=== PATIENT | male | born 1990 | race Caucasian/White ===

== ENCOUNTER 2017-08-01 11:20 | Emergency (ER) | payer OTHER, SELFPAY ==
[2017-08-01 11:21] VITALS: BP 133/69; PULSE 82; RESP 16; TEMP 36.8; O2SAT 98; BMI 25.0
[2017-08-01 11:42] VITALS: O2SAT 98
--- NOTE | 2017-08-01 11:42 | CT_ITS ---
STUDY: CTA CHEST REASON FOR EXAM: Male, 27 years old. Increasing shortness of breath. Recent lower extremity surgery. DVT in the left lower extremity. RADIATION DOSAGE (If Supplied By Facility): CTDIvol = ( 13.98 ) mGy, DLP = ( 528.21 ) mGycm TECHNIQUE: The examination was performed with the intravenous administration of 100 ml of Isovue 370 contrast material. Post-processing of the angiographic images was performed, with multiplanar reformation and 3D reconstruction. Individualized dose optimization techniques were used for this CT. COMPARISON: None. FINDINGS: Normal enhancement of the main pulmonary artery and right and left pulmonary arteries. Normal enhancement of the bilateral peripheral pulmonary arteries. There is no demonstrated pulmonary embolism. Normal thoracic aorta and visualized great vessels. There is no demonstrated aortic dissection. Normal heart and pericardium. Normal mediastinum. Normal hilar regions. Normal visualized trachea and bronchi. The lungs are well expanded. Normal pulmonary parenchyma. Normal pleura. Normal chest wall structures. Normal osseous structures. There is evidence of diffuse fatty infiltration of the liver. CT/CTA Chest W/WO Contrast IMPRESSION: Normal CTA chest examination, without a demonstrated pulmonary embolism or arterial dissection. Electronically Signed: Samir Garrido MD at 13:03 EST Tel [phone], Service support ,
--- NOTE | 2017-08-01 11:42 | EKG12_ITS ---
Test Reason : SOB Blood Pressure : / mmHG Vent. Rate : 068 BPM Atrial Rate : 068 BPM P-R Int : 146 ms QRS Dur : 094 ms QT Int : 390 ms P-R-T Axes : 025 081 052 degrees QTc Int : 414 ms Normal sinus rhythm Normal ECG Confirmed by TEVIN LUCERO, MARISEL ([id number]), supervising film or videotape editor KALLI MOORE ([id number]) on 08/04/2017 11:20:35 AM Referred By: ALMA Confirmed By:MARISEL ABARCA MD
[2017-08-01] MEDS: 0.9% Normal Saline 1,000 ML 1000 ML IV (12:07)
[2017-08-01 12:22] LABS: Absolute Lymphocyte Count 2.26 X10^3/ul (0.83-4.51); Absolute Neutrophil Count 3.7 X10^3/uL (2.0-7.7); Basophil# 0.04 X10^3/uL; Basophil% 0.6 % (0-1); Eosinophil# 0.49 X10^3/uL; Hematocrit 46.7 % (40-54); Hemoglobin 16.3 g/dl (13.0-16.5); Lymphocyte # 2.26 X10^3/ul (4.0); Lymphocyte % 32.1 % (19-41); Mean Corp Hgb Conc 34.9 g/gl (32-36); Mean Corpuscular Hgb 29.1 pg (27.0-32.0); Mean Corpuscular Volume 83.2 fL (80-94); Mean Platelet Vol. 10.8 fl (6.2-12.0); Monocyte# 0.55 X10^3/uL; Monocyte% 7.8 % (0-10); Neutrophil # 3.68 X10^3/uL (2.7-7.7); Neutrophil % 52.4 % (47-70); Platelet Count 248 K/mm3 (150-450); RBC Distribution Width CV 12.7 % (11.6-14.6); RBC Distribution Width SD 38.3 fl (35.1-43.9); Red Blood Count 5.61 M/mm3 (4.6-6.2)
[2017-08-01 12:23] LABS: Anion Gap 8 (5-15); BUN 12 mg/dL (7-18); Calcium,Total 9.3 mg/dL (8.5-10.1); Chloride 106 mmol/L (98-107); Creatinine, Serum 0.86 mg/dL (0.70-1.30); EST Glomerular Filtration Rate 115 mL/min (>60); Est Glom Filt Rate - Afr Amer 139 mL/min (>60); Estimated Creatinine Clearance 144.12 ml/min; Glucose 82 mg/dL (70-110); Potassium 3.7 mmol/L (3.5-5.1); Sodium Level 140 mmol/L (136-145)
[2017-08-01 12:25] LABS: POSITIVE COUNT NO; POSITIVE DIFFERENTIAL NO; POSITIVE MORPHOLOGY NO
[2017-08-01 13:16] VITALS: BP 116/59; PULSE 69; RESP 18; O2SAT 100
--- NOTE | 2017-08-01 13:23 | ED.DCSUM_ITS ---
- ER Visit Summary Date of Service: 08/01/17 Chief Complaint: Shortness of breath History of Present Illness: The patient is a [address] Watters and Dr. Payne. He reports he has shortness of breath began 4 days ago. It is severe at worst and currently. He denies any fever, chills, or cough. He has chest pain is 2 out of 10 severity. Of note patient had a left Achilles repair July 08. Was seen in the emergency department 4 days ago and had Dopplers that showed a left peroneal vein thrombus. He was started on Eliquis. His last dose was this morning. Mother reports that they have a family history of factor V Leiden and his grandfather had a saddle embolus. Physical Examination: Vitals: Stable. Afebrile. General: Well-nourished and well-developed. Head: Normocephalic atraumatic. Neck: Supple, no lymphadenopathy. No JVD. Nontender. Cardiovascular: Regular rate and rhythm. No murmurs. Respiratory: No respiratory distress. Clear to auscultation bilaterally. Abdominal: Soft, nontender, nondistended, normal bowel sounds. No guarding, rebound, or peritoneal signs. Back: Nontender. Extremities: Minimal tenderness to palpation to the left calf. He has a short leg cast on. Skin: Normal color, no rash. Neurologic: Alert and oriented ?3. Cranial nerves II through XII are intact. Normal strength and sensation. Psych: Normal affect. Test Results: EKG is sinus at 68 with no acute changes. Troponin is negative. Chem-7 is normal. CBC is more for eosinophils of 7. CTA of chest is negative. Emergency Department Course and Treatment: She is resting comfortably without complaint. Treatment Plan: He will be discharged instructions to follow-up Dr. Watters for further evaluation and treatment. Return to the emergency department for any worsening symptoms. Disposition: To home in improved and stable condition. Impression:. Dyspnea, uncertain cause. 2. Left peroneal vein thrombus. 3. Family history of factor V Leiden deficiency. 4. Status post left Achilles repair July 08, 2017. This note was generated with [employer] software. It may contain incorrect words, spelling, and punctuation that were not noted in review of the chart prior to signing ED Disposition - Plan for ED Patient: Chief Complaint: Shortness of Breath Instructions: ED Dyspnea Shortness of Breath Referrals: Paul Jacobo MD [Primary Care Provider] - 1-2 Days if not improving
== END 2017-08-01 13:53 | disposition home or self-care (01) ==
PROVIDERS: Emergency Provider Emergency Medicine; Family Provider Family Medicine; PCP Family Medicine
DX: R06.00 Dyspnea, unspecified (principal); I82.4Z2 Acute embolism and thrombosis of unspecified deep veins of left distal lower extremity; Z98.890 Other specified postprocedural states; Z83.2 Family history of diseases of the blood and blood-forming organs and certain disorders involving the immune mechanism
CPT/HCPCS: 71275; 80048; 84484; 85025; 93005; 96360; 96361; 99284; J7050; Q9967; A4216

== ENCOUNTER → 2017-11-09 12:37 | Outpatient (CLI) | payer OTHER, SELFPAY | PROVIDERS: Family Provider Family Medicine; PCP Family Medicine; Visit Provider Family Medicine | DX: Z83.2 Family history of diseases of the blood and blood-forming organs and certain disorders involving the immune mechanism (principal) | CPT/HCPCS: 36415; 81241 ==

== ENCOUNTER 2018-01-16 10:30 | Outpatient (RCR) | payer OTHER, SELFPAY ==
--- NOTE | 2017-09-28 14:02 | HP.PTEVAL ---
Patient's Visit Information SHRUTHI NEWTON is a 27 year old M referred to Physical Therapy by DR.SMORSE Wally with a diagnosis of strain of left achilles tendon. Date of Evaluation: 09/21/17 Physical Therapist: Arun Denson - Visit Plan Frequency: 2-3x /Week Duration: 4-6 Weeks Plan: Start with ankle strengthening as tolerated. Pt. is full WBing in boot with lift, after 4 weeks progress to boot without lift then another 4 weeks transition out of boot. No impact or DF for 9mo.-1 year. - Subjective Subjective: Pt. is here today for her initial evaluation with diagnosis of strain of left achilles tendon with rupture and susequent repair. DOS on 07/08/17. Pt. was recently allowed to wean from crutches, but to maintain in CAM boot. Pt. reports no pain currently, but does have increased soreness in his heel with prolonged walking. Pt. has not been doing any exercises currently. Pt. reports injury his achilles while playing basketball. 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 Pt. reports noticing overall reduction in calf muscle mass side to side. Pt. is hopeful to get started with PT to build up his strength in order to get back to all recreational sports: basketball, running, crossfit without limitations. - Pain L achilles Pain Intensity (Out of 10): 0 Pain Intensity Range: 0, 3 - Objective POSTURE: Pt. has normal posture. Pt. is to wear CAM boot with all standing and walking. PALAPTION: Pt. has normal well healing incision along achilles tendon. No signs of infection or issues. Pt. has negative sandeep's sign. Pt. has marked muscle calf atrophy of L calf. Pt. has mild tenderness along distal insertion of achilles tendon. NEUROLOGICAL: Pt. has normal sensation to light and sharp touch of bilateral LEs. Pt. has 2+ achilles and patellar DTR on R side, 2+ patellar DTR on L side. ROM: R ankle- PF 55deg, DF 16deg, INV 20deg, EVR 20deg. L ankle- DF 0deg, PF 51deg, INV 16deg, EVR 12deg. Pt. has normal knee ROM bilaterally. MMT: R ankle- 5/5 throughout; knee- ext 5/5, flexion 5/5; hip- flexion 5/5, abd 5-/5, ext 5/5. L ankle- DF no testing, PF 3/5 no over pressure applied, INV 4/5, INV 4/5; knee- ext 4+/5, flexion 4+/5; hip- flexion 4+/5, abd 4/5, ext 4+/5. GAIT: Pt. ambulates with CAM boot. Pt. has normal pattern, no antalgic motions. Pt. is able to negotiate steps with LOB, but loads RLE only with descending, brace limiting proper ankle mobility. - Goals Goal 1:: Pt. to be I with HEP. Goal Time Frame: 4-6 Weeks Goal 2:: Pt. to have full L ankle ROM without increase in symptoms. Goal Time Frame: 4-6 Weeks Goal 3:: Pt. to have increased LLE strength to 5/5 throughout, reducing stress applied to achilles tendon with all functional mobility. Goal Time Frame: 4-6 Weeks Goal 4:: Pt. to ambulate with normal gait pattern without increase in symptoms. Goal Time Frame: 4-6 Weeks Goal 5:: Pt. to negotiate steps without HR with reciprocal pattern. Goal Time Frame: 4-6 Weeks - Rehabilitation Potential Physical Therapy Diagnosis: Pt. had strain of left achilles tendon with subsequent achilles tendon repair. He presents with ankle hypombility, weakness, difficulty with gait and decreased abiity to complete recreational sports. Pt. would benefit from PT to increase ankle ROM, progress strength and progress gait as tolerated. Rehabilitation Potential: Excellent - Anticipated Interventions Patient/Client Instruction: Educate patient on: Condition, Plan of Care, Risk Factors, Benefits of Fitness Program For the Purpose of:: To improve decision making, To facilitate caregiver knowledge, To improve self management, To prevent re-injury, To improve ability to perform tasks related to life management, To improve tolerance to ADL's Therapeutic Exercise to Include: Strength training, Power training, Balance training, Agility training, Body mechanics, Postural training, Flexibilty training, Neuromotor development, Passive ROM, Active ROM For the Purpose of:: To decrease pain, To increase ROM, To improve nutrient delivery to tissue, To increase oxygenation perfusion, To improve muscle performance and motor function, To improve ability to perform ADL's, To increase tolerance to activity/condition/position, To improve performance and independence with ADL's, To decrease level of supervision to perform tasks, To decrease soft tissue restriction, To increase flexibility/ROM, To improve endurance, To improve balance Manual Therapy Techniques to Include: Massage, Mobilization, Functional dry needling, Soft tissue mobilization For the Purpose of:: To decrease pain, To decrease swelling/inflammation, To increase ROM, To improve nutrient delivery to tissue IF ES: Yes Cryotherapy (ice pack, ice massage): Yes Thermo therapy (hot pack): Yes For the Purpose of:: To decrease pain, To decrease swelling/inflammation, To increase ROM Thank you for the opportunity to evaluate your patient. For Medicare and Medicare HMO plans, please review the plan of care and approve it. It will need to be FAXED BACK to us at [phone] for Medicare purposes. Please let me know if there are questions or concerns regarding this plan of care. Physician Signature: Date:
--- NOTE | 2017-12-30 09:21 | HP.PTREVAL_ITS ---
Rola Payne,, It has been my pleasure to treat SHRUTHI NEWTON over the last 34 visits for strain of left achilles tendon. Please see the progress note below for an update on the physical therapy plan of care! Subjective: Pt. reports no pain or problems pre treatment. He was able to play softball with pitching and running without issues, pt. reports no spriting. Pt. is back to most activities without limitations. Pt. is pleased with progress. Objective/Function: Pt. has normal ROM without issues. MMT- 5/5 throughout no pain noted. Pt. is ambulating and negotiation stairs without issues. Running- pt. has slight early heel off with gait, but minimal. Pt. is jumping wihtout isues. I talked to patient about staying away from aggressive movements still, but progress movements as tolerated. Pt. to follow up with PT in 2 weeks. Plan Plan: Pt. to follow up with PT in 2 weeks. Goals Goal 1:: Pt. to be I with HEP. Goal Time Frame: 4-6 Weeks Goal Progress: Goal Met Goal 2:: Pt. to have full L ankle ROM without increase in symptoms. Goal Time Frame: 4-6 Weeks Goal Progress: Goal Met Goal 3:: Pt. to have increased LLE strength to 5/5 throughout, reducing stress applied to achilles tendon with all functional mobility. Goal Time Frame: 4-6 Weeks Goal Progress: Goal Met Goal 4:: Pt. to ambulate with normal gait pattern without increase in symptoms. Goal Time Frame: 4-6 Weeks Goal Progress: Goal Met Goal 5:: Pt. to negotiate steps without HR with reciprocal pattern. Goal Time Frame: 4-6 Weeks Goal Progress: Goal Met Anticipated Interventions Patient/Client Instruction: Educate patient on: Condition, Plan of Care, Risk Factors, Benefits of Fitness Program For the Purpose of:: To improve decision making, To facilitate caregiver knowledge, To improve self management, To prevent re-injury, To improve ability to perform tasks related to life management, To improve tolerance to ADL's Therapeutic Exercise to Include: Strength training, Power training, Balance training, Agility training, Body mechanics, Postural training, Flexibilty training, Neuromotor development, Passive ROM, Active ROM For the Purpose of:: To decrease pain, To increase ROM, To improve nutrient delivery to tissue, To increase oxygenation perfusion, To improve muscle performance and motor function, To improve ability to perform ADL's, To increase tolerance to activity/condition/position, To improve performance and independence with ADL's, To decrease level of supervision to perform tasks, To decrease soft tissue restriction, To increase flexibility/ROM, To improve endurance, To improve balance Manual Therapy Techniques to Include: Massage, Mobilization, Functional dry needling, Soft tissue mobilization For the Purpose of:: To decrease pain, To decrease swelling/inflammation, To increase ROM, To improve nutrient delivery to tissue IF ES: Yes Cryotherapy (ice pack, ice massage): Yes Thermo therapy (hot pack): Yes For the Purpose of:: To decrease pain, To decrease swelling/inflammation, To increase ROM Please do not hesitate to contact me at [phone] by phone or Fax: if you have questions or concerns regarding this new plan of care! Sincerely, Arun Denson
--- NOTE | 2018-01-16 11:33 | HP.PTDCSUM ---
HP - PT D/C Summary It has been my pleasure to treat SHRUTHI NEWTON under orders from Rola Payne,, for the diagnosis of strain of left achilles tendon for a total of 35 visit(s). Discharge Date: 01/16/18 Please see the following information for a summary of their discharge status. - Subjective Subjective: Pt. reports I am doing really well. I don't really have any issues. Pt. pleased with progrss. Pt. does have slight stiffness and soreness at anterior talotibial joint, most notably with jumping. Pt. reports being 97% better overall. Pt. reports being able to lightly jog and play softball without issues. - Pain L achilles Pain Intensity (Out of 10): 0 - Overall Improvement % Improvement: 97 - Objective Objective/Function: Pt. has full ROM and strength. He has complete full heel raises without issues, but does have difficulty with L SL heel raises. Pt. is jumping without issues, but does have mild anterior pain with SL hopping to landing. Pt. is pleased with progress. Pt. is to continue with exercises and stretching on own at this point intime. - Goals Goal 1:: Pt. to be I with HEP. Goal Progress: Goal Met Goal 2:: Pt. to have full L ankle ROM without increase in symptoms. Goal Progress: Goal Met Goal 3:: Pt. to have increased LLE strength to 5/5 throughout, reducing stress applied to achilles tendon with all functional mobility. Goal Progress: Goal Met Goal 4:: Pt. to ambulate with normal gait pattern without increase in symptoms. Goal Progress: Goal Met Goal 5:: Pt. to negotiate steps without HR with reciprocal pattern. Goal Progress: Goal Met - Plan Plan: Pt. to be DC to HEP at this point in time. - D/C Information Discharge Comments: Pt. has progressed after his achilles tendon repair. He is back to light running, sporting activities and has only occassional anterior ankle pain with jumping. Pt. has full strength and ROM at this point in time. Pt. will be DC from PT at this point in time. If there are questions or concerns regarding this patient's physical therapy, please feel free to call me at [phone]. Thank you for the referral of this patient. Sincerely, Arun Denson
== END 2018-01-16 19:00 | disposition home or self-care (01) ==
LOC: PT 10:30
PROVIDERS: Family Provider Family Medicine; PCP Family Medicine; Visit Provider Podiatrist Foot & Ankle Surgery
DX: S86.012D Strain of left Achilles tendon, subsequent encounter (principal)
CPT/HCPCS: 97110; 97161

== ENCOUNTER → 2018-06-23 11:30 | Outpatient (CLI) | payer OTHER, SELFPAY ==
--- NOTE | 2018-06-23 11:33 | RAD_ITS ---
STUDY: X-RAY CHEST REASON FOR EXAM: Male, 28 years old. Shortness of breath with mild anterior chest pain, dropped a bench press bar on chest recently TECHNIQUE: PA and lateral views of the chest. COMPARISON: None. FINDINGS: The lungs are clear and expanded. There is no demonstrated pleural abnormality. Normal size heart. Normal mediastinum and all. Normal visualized pulmonary arteries. Normal visualized aortic arch and descending thoracic aorta. Normal visualized thoracic spine. Normal visualized ribs, clavicles, and shoulders. The sternum is grossly unremarkable without obvious fracture. There is no demonstrated abnormality of the visualized soft tissue structures of the upper abdomen. RAD/Chest PA and Lateral IMPRESSION: Normal x-ray examination of the chest. Electronically Signed: Kennedy Deluna MD at 10:03 EST , Service support ,
== END ==
PROVIDERS: Family Provider Family Medicine; PCP Family Medicine; Referring Provider Family Medicine; Visit Provider Family Medicine
DX: R06.02 Shortness of breath (principal)
CPT/HCPCS: 71046

== ENCOUNTER → 2021-11-09 | Outpatient (CLI) | payer OTHER, SELFPAY ==
[2021-11-09 16:32] LABS: Anion Gap 9 (5-15); BUN 12 mg/dL (7-18); BUN/Creat Ratio 12.7 RATIO (10-20); Calcium,Total 9.5 mg/dL (8.5-10.1); Chloride 106 mmol/L (98-107); Cholesterol 149 mg/dL (200); Creatinine, Serum 0.95 mg/dL (0.70-1.30); EST Glomerular Filtration Rate 100 mL/min (>60); Est Glom Filt Rate - Afr Amer 121 mL/min (>60); Glucose 84 mg/dL (74-106); High Density Lipoprotein 48 mg/dL; Potassium 3.9 mmol/L (3.5-5.1); Sodium Level 139 mmol/L (136-145); Triglycerides 72 mg/dL; Very Low Density Lipoprotein 14 mg/dL (5-40)
== END | disposition home or self-care (01) ==
LOC: MFPLAB 11:09
PROVIDERS: PCP Family Medicine; Visit Provider Family Medicine
DX: Z13.220 Encounter for screening for lipoid disorders (principal)
CPT/HCPCS: 36415; 80048; 80061

== ENCOUNTER 2021-11-24 08:17 | Emergency (ER) | payer OTHER, SELFPAY ==
[2021-11-24 08:18] VITALS: BP 144/94; PULSE 60; RESP 14; TEMP 36.6; O2SAT 99; BMI 26.4
--- NOTE | 2021-11-24 08:46 | CT_ITS ---
STUDY: CT ABDOMEN AND PELVIS WITHOUT CONTRAST REASON FOR EXAM: Male, 31 years old. Kidney Stone RADIATION DOSAGE (If Supplied By Facility): CTDIvol = ( 7.3 ) mGy, DLP = ( 386.74 ) mGycm TECHNIQUE: Transaxial images were obtained from the dome of the diaphragm to the symphysis pubis without oral contrast, and without intravenous contrast. Sagittal and coronal images were reconstructed. Individualized dose optimization techniques were used for this CT. COMPARISON: None. FINDINGS: The visualized lung bases are unremarkable. The visualized portions of the heart are within normal limits. There is decreased attenuation of the liver consistent with steatosis. Normal gallbladder and extrahepatic biliary system. Normal spleen. Normal pancreas. Normal bilateral adrenal glands. Bilateral nonobstructing renal stones. 5 mm obstructing stone at the left ureteropelvic junction with mild hydronephrosis. There is a second smaller (3 mm) nonobstructing stone in the dependent portion the left renal pelvis. Normal visualized stomach. Normal small intestine. Normal colon. The appendix is visualized and appears normal. Normal abdominal aorta. Normal inferior vena cava. Normal retroperitoneum. Normal urinary bladder. Normal abdominal wall. Normal osseous structures. CT/Abdomen/Pelvis without Cont IMPRESSION: 5 mm obstructing stone at the left ureteropelvic junction with mild hydronephrosis. Electronically Signed: Derrick Horowitz MD at 9:51 EDT ,
[2021-11-24] MEDS: Ondansetron 4 MG/2 ML Vial IV (08:51)
[2021-11-24] MEDS: Ketorolac 30 MG/ML Syringe IV (08:51)
[2021-11-24] MEDS: 0.9% Normal Saline 1,000 ML 250 ML IV (08:51)
--- NOTE | 2021-11-24 08:51 | EX.ED.GUMALE ---
HPI History of Present Illness Chief Complaint: Flank Pain Narrative Narrative: Patient with past medical history of kidney stones presents with left flank pain that began this weekend. He states he had sudden onset of left flank pain radiating to his testicle this morning. He had leftover medications of Flomax and oxycodone that he took which helped mild to moderately. He states this morning he began urinating small blood clots. He was nauseated. He cannot get comfortable. This feels like previous kidney stones for which she saw Dr. Bond in the past, but does not really see him because he has been able to pass small stones regularly. He last passed a stone a few weeks ago. He states he has not been to the emergency department in quite some time if not a few years for kidney stones, but feels this stone is stuck. PFSH PFSH Home Medications apixaban [Eliquis] 5 mg PO BID #74 tab 07/28/17 [Rx Last Taken Unknown] ketorolac 10 mg PO Q8H 5 Days #15 tab 11/24/21 [Rx Last Taken Unknown] oxycodone-acetaminophen [Percocet] 1 tab PO Q6H PRN 3 Days #12 tab 11/24/21 [Rx Last Taken Unknown] tamsulosin [Flomax] 0.4 mg PO QHS #10 cap 11/24/21 [Rx Last Taken Unknown] Allergy/AdvReac Type Severity Reaction Status Date / Time No Known Allergies Allergy Verified 11/24/21 08:18 Social History Smoking Status: Never smoker ROS ROS ED ROS Narrative Constitutional: No fever, no chills. HEENT: No sore throat. No neck pain. No loss of vision. No rhinorrhea. Cardiovascular: No chest pain. No palpitations. No pedal edema. Respiratory: No cough, no shortness of breath. Abdominal: Positive left flank pain/abdominal pain. Mild nausea. No vomiting. Genitourinary: No dysuria. Positive hematuria, small clots. Left flank pain radiating to left testicle. Musculoskeletal: No myalgias. No arthralgias. Neurologic: No headaches. No dizziness. No lightheadedness. Skin: No rash. No change in color. Psychiatric: No depression. No anxiety. EXAM Physical Exam Narrative Exam Narrative: Afebrile. Vital signs noted. HEENT: Normocephalic. Atraumatic. PERRL, EOMI. Neck soft and supple. No point tenderness or step off. Cardiovascular: Regular rate and rhythm. No murmurs, rubs, or gallops appreciated. Respiratory: No tachypnea. Lungs clear to auscultation bilaterally. Gastrointestinal: Abdomen soft, nontender, with normoactive bowel sounds. No rebound or guarding. Genitourinary: Chaperoned examination reveals no testicular tenderness or swelling. No inguinal lymphadenopathy. Neurological: Awake. Alert. Nonfocal, nonlateralizing. Skin: No rash. Normal color. No pallor. Musculoskeletal: No pedal edema. Full range of motion extremities. Const Vital Signs: 11/24/21 08:18 Temperature 98 F Temperature Source Temporal Pulse Rate 60 Respiratory Rate 14 Blood Pressure 144/94 H Blood Pressure Mean 110 Pulse Ox 99 Oxygen Delivery Method Room Air MDM MDM MDM Narrative Medical decision making narrative: Ureteral stone work-up was pursued. He was administered normal saline intravenously, Toradol, and ondansetron. I will obtain CBC, BMP, and urinalysis along with CT imaging. CBC shows normal white count of 8.9, hemoglobin normal at 14.3. Electrolyte panel is grossly unremarkable. Normal creatinine of 0.94 with a BUN of 15. Urinalysis shows no evidence of infection, negative nitrates, WBC 0, with 10-[address] of the abdomen and pelvis does show a 5 mm ureteral pelvic junction stone causing mild hydronephrosis. There is a 3 mm dependent stone in the inferior pole of the left kidney. At this point in time, his pain is better controlled. He was written prescriptions for ketorolac, oxycodone-acetaminophen no. 12, entomologist sent. He will follow-up with his urologist Dr. Bond. Referral was made from the emergency department. He was also given a note to be off work for the next 2 days. I feel he can be discharged safely home with follow-up. Return instructions to the emergency department were reviewed. Disposition is discharged home in stable condition. Lab Data Attestation: I reviewed the patient's lab results. Labs: Laboratory Results - last 24 hr 11/24/21 11/24/21 11/24/21 08:52 08:52 09:00 WBC 8.9 RBC 5.14 Hgb 14.3 Hct 43.4 MCV 84.4 MCH 27.8 MCHC 32.9 RDW Std Deviation 37.4 RDW Coeff of Elias 12.3 Plt Count 290 MPV 10.0 Immature Gran % (Auto) 0.200 Neut % (Auto) 64.2 Lymph % (Auto) 26.9 [place] % (Auto) 7.0 Eos % (Auto) 1.1 Baso % (Auto) 0.6 Absolute Neuts (auto) 5.7 Absolute Lymphs (auto) 2.40 Nucleated RBC % 0 Sodium 139 Potassium 4.1 Chloride 107 Carbon Dioxide 27.0 Anion Gap 5 BUN 15 Creatinine 0.94 Estim Creat Clear Calc 131.04 Est GFR (MDRD) Af Amer 121 Est GFR (MDRD) Non-Af 100 BUN/Creatinine Ratio 15.9 Glucose 91 Calcium 9.0 Urine Color Yellow Urine Clarity Sl. Cloudy Urine pH 7.0 Ur Specific [place] 1.010 Urine Protein 15 H Urine Glucose (UA) Normal Urine Ketones Negative Urine Occult Blood 250 H Urine Nitrite Negative Urine Bilirubin Negative Urine Urobilinogen Normal Ur Leukocyte Esterase Negative Urine RBC 10-25 SEEN Urine WBC 0 SEEN Ur Squamous Epith Cells 0 SEEN Urine Bacteria 0 SEEN Urine Mucus 0 SEEN Radiography Diagnostic Testing: Clinical Impression(s) from Imaging Studies Abdomen/Pelvis CT 11/24/21 08:46 IMPRESSION: 5 mm obstructing stone at the left ureteropelvic junction with mild hydronephrosis. Electronically Signed: Derrick Horowitz MD at 9:51 EDT , Discharge Plan Triage Chief Complaint: Flank Pain ED Provider: Danyel Pisano Dx/Rx/DC Orders Clinical Impression: Kidney stone on left side, Ureteral colic, Hydronephrosis Instructions: ED Kidney Stone w/ Colic Prescriptions: New ketorolac 10 mg tablet 10 mg PO Q8H 5 Days Qty: 15 RF: 0 tamsulosin [Flomax] 0.4 mg capsule 0.4 mg PO QHS Qty: 10 RF: 0 oxycodone-acetaminophen [Percocet] 5-325 mg tablet 1 tab PO Q6H PRN (Reason: pain) 3 Days Qty: 12 RF: 0 No Action apixaban [Eliquis] 5 MG tablet 5 mg PO BID Qty: 74 RF: 0 Stand Alone Forms: ED Work / School Excuse Primary Care Provider: Paul Jacobo Referrals: Paul Jacobo MD [Primary Care Provider] - Henry Bond MD [STAFF PHYSICIAN] - 3-5 Days Disposition Disposition: Home, Self Care
[2021-11-24 09:05] LABS: Bacteria 0 SEEN /hpf (None Seen); Mucous, Urine 0 SEEN /hpf (<or=2+); Squamous Epithelial Cells - UA 0 SEEN /hpf (0-5); White Blood Cells 0 SEEN /hpf (0-5)
[2021-11-24 09:08] LABS: Color, Urine Yellow (Yellow); Glucose, Dipstick Normal (Normal); Ketone-Dipstick Negative (Negative); Leukocyte Esterase-Dipstick Negative /ul (Negative); Nitrite-Dipstick Negative (Negative); Occult Blood-Urine 250 /ul (Negative); Protein-Dipstick 15 mg/dl (Negative); Urine Bilirubin Dipstick Negative (Negative); Urine Clarity Sl. Cloudy (Clear); Urine Urobilinogen Normal (Normal)
[2021-11-24 09:13] LABS: Absolute Neutrophil Count 5.7 X10^3/uL (2.0-7.7); Basophil# 0.05 X10^3/uL; Basophil% 0.6 % (0-1); Eosinophils% 1.1 % (0-5); Hematocrit 43.4 % (40-54); Hemoglobin 14.3 g/dL (13.0-16.5); Lymphocyte % 26.9 % (19-41); Mean Corp Hgb Conc 32.9 g/dL (32-36); Mean Corpuscular Hgb 27.8 pg (27.0-32.0); Mean Corpuscular Volume 84.4 fL (80-94); Monocyte# 0.62 X10^3/uL; NRBC Flagged by Analyzer 0 % (0-5); Neutrophil # 5.72 X10^3/uL (2.7-7.7); Neutrophil % 64.2 % (47-70); Platelet Count 290 K/mm3 (150-450); RBC Distribution Width CV 12.3 % (11.6-14.6); RBC Distribution Width SD 37.4 fl (35.1-43.9); Red Blood Count 5.14 M/mm3 (4.6-6.2); White Blood Count 8.9 K/mm3 (4.4-11.0)
[2021-11-24 09:17] LABS: Red Blood Cells-Urine 10-25 SEEN /hpf (0-5)
[2021-11-24 09:23] LABS: Anion Gap 5 (5-15); BUN 15 mg/dL (7-18); BUN/Creat Ratio 15.9 RATIO (10-20); Chloride 107 mmol/L (98-107); Creatinine, Serum 0.94 mg/dL (0.70-1.30); EST Glomerular Filtration Rate 100 mL/min (>60); Est Glom Filt Rate - Afr Amer 121 mL/min (>60); Estimated Creatinine Clearance 131.04 ml/min; Glucose 91 mg/dL (74-106); Potassium 4.1 mmol/L (3.5-5.1); Sodium Level 139 mmol/L (136-145)
[2021-11-24 10:23] VITALS: BP 130/82; PULSE 70; RESP 16; O2SAT 99
== END 2021-11-24 10:28 | disposition home or self-care (01) ==
PROVIDERS: Emergency Provider Emergency Medicine; PCP Family Medicine; Visit Provider Emergency Medicine
DX: N13.2 Hydronephrosis with renal and ureteral calculous obstruction (principal); R11.0 Nausea; N23 Unspecified renal colic
CPT/HCPCS: 74176; 80048; 81001; 85025; 96361; 96374; 96375; 99283; J7030; A4216; J2405

== ENCOUNTER → 2021-12-15 | Outpatient (CLI) | payer OTHER, SELFPAY ==
--- NOTE | 2021-12-15 15:03 | VDLE_ITS ---
Reason For Study: Left calf pain Procedure LEFT This is a venous duplex using B-mode, color GSV is normal. flow and spectral Doppler. CFV is compressible, spontaneous, phasic, Exam performed in department. competent, and demonstrates normal A preliminary report was called and/or faxed augmentation. to [facility]. FV is compressible, spontaneous, phasic, competent and demonstrates normal augmentation. POP V is compressible, spontaneous, phasic, competent and demonstrates normal augmentation. T/P Trunk is compressible. PTV is compressible. LT PerV is compressible. Nonvascularized structure noted in the left proximal calf muscle. VL/Venous Duplex US, Unilateral Interpretation Summary There is no evidence of left lower extremity deep vein thrombosis. Left great s aphenous vein appears patent and compressible segmentally. Nonvascular structure located in the left proximal calf muscle longer than a ultrasound viewing screened of undetermined etiology. Clinical co rrelation or additional imaging if indicated. Ordering Physician: Paul Jacobo Referring Physician: Candido Jacobo MD Performed By: Savanna Easley RVT
== END | disposition home or self-care (01) ==
PROVIDERS: PCP Family Medicine; Visit Provider Family Medicine
DX: M79.662 Pain in left lower leg (principal)
CPT/HCPCS: 93971

== ENCOUNTER → 2022-01-05 | Outpatient (CLI) | payer OTHER, SELFPAY ==
--- NOTE | 2022-01-05 08:38 | RAD_ITS ---
STUDY: X-RAY - ABDOMEN/PELVIS REASON FOR EXAM: Male, 31 years old. Flank pain TECHNIQUE: Two AP supine views of the abdomen and pelvis. COMPARISON: None. FINDINGS: Normal visualized lung bases. There is an unremarkable bowel gas pattern. There is no demonstrated free abdominal air. The visualized liver, spleen and kidneys are grossly normal in size and morphology. No calcifications overlying either renal shadow, or along the expected course of either ureter, however, one could be obscured by the overlying bowel gas and stool Normal soft tissue structures. Normal visualized osseous structures. RAD/Abdomen Single View IMPRESSION: Normal x-ray examination of the abdomen and pelvis. Electronically Signed: Marcus Romero MD at 11:55 EDT ,
== END | disposition home or self-care (01) ==
LOC: RAD 08:36
PROVIDERS: PCP Family Medicine; Referring Provider Urology; Visit Provider Urology
DX: N20.1 Calculus of ureter (principal)
CPT/HCPCS: 74018

== ENCOUNTER 2025-02-07 16:00 | Outpatient (CLI) | payer OTHER, SELFPAY ==
[2025-02-07 20:14] LABS: Synovial Fld Mononuclear WBC # 4.225 10^3/ul; Synovial Fld Mononuclear WBC % 17.9 %; Synovial Fld Polynuclear WBC % 82.1 %
[2025-02-07 20:21] LABS: AUTO B FLUID DILUENT BKGD CT WBC <0.1 RBC <0.01 (W<.1,R<.01); Color / Synovial Fluid Yellow (Pale Yellow); Source / Synovial Fluid LEFT KNEE; Source- Body Fluid SYNOVIAL
[2025-02-07 20:22] LABS: Appearance /Synovial Fluid Turbid (CLEAR)
[2025-02-07 22:43] LABS: Body Fluid QC Type(s) BF1Q, BF2Q; RBC /Synovial Fluid 495 /mm3 (0)
[2025-02-07 23:20] LABS: Monocyte /Synovial Fluid 16 %
[2025-02-07 23:34] LABS: CRYSTALS, BODY FLUID NO CRYSTALS SEEN
== END 2025-02-07 23:59 | disposition home or self-care (01) ==
LOC: LABSPEC 16:01
PROVIDERS: PCP Family Medicine; Visit Provider Family Medicine
DX: M25.462 Effusion, left knee (principal)
CPT/HCPCS: 87070; 87075; 87205; 89050; 89051; 89060

== ENCOUNTER → 2025-06-24 | Outpatient (CLI) | payer OTHER, SELFPAY ==
[2025-06-24 10:54] LABS: Anion Gap 11 (5-15); BUN 14 mg/dL (4-19); BUN/Creat Ratio 16.2 RATIO (10-20); Calcium,Total 9.8 mg/dL (7.6-11.0); Carbon Dioxide 26.3 mmol/L (21.0-32.0); Chloride 103 mmol/L (98-108); Cholesterol 171 mg/dL (<=200); Glucose 97 mg/dL (70-99); Low Density Lipoprotein Calc. 100 mg/dL; Potassium 4.3 mmol/L (3.3-5.1); Triglycerides 113 mg/dL; Very Low Density Lipoprotein 23 mg/dL (5-40); cholesterol:hdl ratio screen 3.41
== END | disposition home or self-care (01) ==
LOC: MTLAB 08:06
PROVIDERS: PCP Family Medicine; Referring Provider Family Medicine; Visit Provider Family Medicine
DX: Z13.1 Encounter for screening for diabetes mellitus (principal); Z13.220 Encounter for screening for lipoid disorders
CPT/HCPCS: 36415; 80048; 80061

== ENCOUNTER → 2025-06-25 | Outpatient (CLI) | payer OTHER, SELFPAY ==
--- OUTSIDE RECORDS SUMMARY | 2025-06-25 09:01 | XMS RPT_ITS | CCD ---
Author Organization [facility] Inform ion Partnership [facility] Care Team Providers Care Film Editor Supervisor Name Role Phone Donnell LUCERO, Husam Ramirez Primary Care Provider CLEMENTINA ZUNIGA Attending Unava ilable HUSAM JACOBO Primary Care Unavailcarolann Jacobo MD, Dr. Rey Primary Care Provider Dr. Husam Jacobo MD Attending Provider Husam Jacobo Attending Unavailable Husam Jacobo Primary Care Unavailable STEPH GARCES Attending Unavailab HUSAM Armas Primary Care Unavail able Allergies Allergy Classification Reported Allergen(s) Allergy Type Date of Onset Reaction(s) Facility (2 sources) Adhesive Tape-Silicones; Translations: [ADHESIVE TAPE-SILICONES] Drug Intolerance 4 Rash [facility] Medications Current Medications Medication Drug Class(es) Dates Sig (Normalized) Sig (Original) acetaminophen 325 mg / oxyCODONE hydrochloride 5 mg oral tablet (2 sources) Opioid Agonist Start: 11-24-2021 take 1 tablet by mouth every six hours as needed for pain Oxycodone-Acetamin ophen (Percocet) 5-325 mg tablet Active 1 {tbl} PO EVERY 6 HOURS as needed for pain 12 3 0 November 24, 2021 Calculus of left kidney Calculus of kidney apixaban 5 mg oral tablet (3 sources) Factor Xa Inhibitor Start: 07-28-2017 take 2 tablets by mouth twice daily, then take 1 tablet by mouth twice daily Apixaban (Eliquis) 5 MG tablet Active 5 MG PO TWICE A DAY 74 July 28, 2017 4:16pm 10 mg p.o. twice daily 7 days. Then 5 mg p.o. twice daily. cephalexin 500 mg oral capsule (1 source) Cephalosporin Antibacterial Start: 05-07-2024 End: 05-10-2024 take 1 capsule by mouth three times daily cephALEXin (KEFLEX) 500 mg capsule Indications: Encounter for vasectomy counseling , Request for sterilization Take 1 capsule by mouth three times a day for 3 days. Start day of vasectomy 9 capsule 05/07/2024 05/10/2024 Active diazePAM 10 mg oral tablet (1 source) Benzodiazepine Start: 05-07-2024 End: 05-07-2024 take 1 tablet by mouth once, then take 1 tablet by mouth every hour diazePAM (VALIUM) 10 mg tablet Indications: Encounter for vasectomy counseling , Request for sterilization Take 1 tablet by mouth one time only for 1 dose. Take one hour prior to vasectomy 1 tablet 05/07/2024 05/07/2024 Active ketorolac tromethamine 10 mg oral tablet (2 sources) Nonsteroidal Anti-inflammatory Drug, Cyclooxygenase Inhibitor Start: 11-24-2021 take 10 mg by mouth every eight hours Ketorolac Active 10 MG PO Q8H 15 November 24, 2021 10:03am naproxen 500 mg oral tablet (1 source) Nonsteroidal Anti-inflammatory Drug Start: 07-05-2017 take 1 tablet by mouth every twelve hours as needed naproxen (NAPROSYN) 500 mg tablet Take 1 tablet by mouth twice daily as needed. TAKE WITH FOOD 14 tablet 07/05/2017 Active tamsulosin hydrochloride 0.4 mg oral capsule (2 sources) alpha-Adrenergic Jose Alberto Start: 11-24-2021 take 1 capsule by mouth at bedtime Tamsulosin (Flomax) 0.4 mg capsule Active 0.4 MG PO AT BEDTIME November 24, 2021 10:03am Problems Active Problems Problem Classification Problem Date Documented Da te Episodic/Chronic Calculus of urinary tract (6 sources) Ureteric colic; Translations: [Unspecified renal colic] 12-02-2021 Episodic Contraceptive and procreative management (4 sources) Patient encounter status; Translations: [Encounter for other general counseling and advice on contraception] Onset: 05-07-2024 05-04-2024 Episodic Other connective tissue disease (2 sources) Other muscle spasm; Translations: [Other muscle spasm] Onset: 02-05-2025 Episodic Other diseases of kidney and ureters (2 sources) Hydronephrosis; Translations: [Unspecified hydronephrosis] 12-02-2021 Episodic Other non-traumatic joint disorders (2 sources) Pain in left knee; Translations: [Pain in left knee] Onset: 02-05-2025 Episodic Past or Other Problems Problem Classification Problem Date Documented Da te Episodic/Chronic Other injuries and conditions due to external causes (1 source) Unspecified injury of left Achilles tendon, initial encounter; Translations: [Unspecified injury of left Achilles tendon, initial encounter] Onset: 07-05-2017 Episodic Results Test Name Value Interpretation Reference Range Facility Body Fluid Culton 02-13-2025 BFC UNK UNK No growth in 5 days. [facility] Comment on above: Performed By: #### M 100.4001, L200.4175, M100.2900, L200.0400, M100.1999 #### [facility] [address] [place], [address] Culture, Anaerobic Any Sourc drew 02-13-2025 CUAN UNK UNK No growth in 5 days. Normal [facility] Comment on above: Performed By: #### M 100.4001, L200.4175, M100.2900, L200.0400, M100.1999 #### [facility] [address] [place], [address] Crystals, Body Fluidon 02-08 PATH REV Reviewed Normal [facility] Comment on above: Result Comment: RARE CRYSTALS, NEGATIVE FOR URIC ACID. ACUTE INFLAMMATION WITH TOXIC CHANGES, RULE OUT INFECTION. Elsa Ward MD 02/08/2025 AMENDED REPORT 02/08/25 1028 PATH REV previously reported as: Will follow Performed By: #### M 100.4001, L200.4175, M100.2900, L200.0400, M100.1999 #### [facility] [address] [place], [address] Gram Stainon 02-08-2025 GS UNK UNK Centrifuged Specimen? Culture performed on centrifuged specimen Gram Stain No organisms seen 2+ White Blood Cells * This is an amended result. * A prior result that was reported as final has been changed. 02/11/25 08 by ROXANA [facility] Comment on above: Performed By: #### M 100.4001, L200.4175, M100.2900, L200.0400, M100.2000 #### [facility] [address] [place], [place], [id number] Anaerobic cultureOrdered By: Husam Jacobo on 02-07-2025 Bacteria identified Anaer cx Nom (Unsp spec) No growth in 5 days. [facility] Automated synovial fluid bao kocytes count (number/volume)Ordered By: Husam Jacobo on 02-07-2025 WBC Auto (Syn fld) [#/Vol] 26.9250 10^3/uL High 0.000-0.002 [facility] Automated synovial fluid mon onuclear cell count (number/volume)Ordered By: Husam Jacobo on 02-07-2025 Mononuclear cells Auto (Syn fld) [#/Vol] 4.225 10^3/ul [facility] Automated synovial fluid royal ymorphonuclear cell count (number/volume)Ordered By: Husam Jacobo on 02-07-2025 Polymorphonuclear cells Auto (Syn fld) [#/Vol] 19.442 10^3/uL [facility] Automated synovial fluid royal ymorphonuclear cells as percentage of leukocytesOrdered By: Husam Jacobo on 02-07-2025 Polymorphonuclear cells/100 WBC Auto (Syn fld) 82.1 % [facility] Blood lymphocytes/100 leukoc ytesOrdered By: Husam Jacobo on 02-07-2025 Lymphocytes/100 WBC (Bld) 2 % [facility] Body fluid crystal identific ation by light microscopyOrdered By: Husam Jacobo on 02-07-2025 Crystals LM Nom (Body fld) NO CRYSTALS SEEN [facility] Comment on above: CRYSTAL RESULT IS PRELIMINARY. SEE PATH REVIEW FOR FINAL REPORT. Determination of appearance of synovial fluid (nominal result)Ordered By: Husam Jacobo on 02-07-2025 Appearance (Syn fld) Turbid CLEAR [facility] Gram stainOrdered By: Eliazar Jacobo on 02-07-2025 Microscopic observation Gram stain Nom (Unsp spec) [facility] Pathologist review of result s (narrative result)Ordered By: Husam Jacobo on 02-07-2025 Pathologist review Agustin (Unsp spec) [Interp] May follow [facility] Review by pathologistOrdered By: Husam Jacobo on 02-07-2025 Pathologist review Agustin (Unsp spec) [Interp] Reviewed [facility] Comment on above: Previous reported re sult: Will follow Edited by: MARCO on 02/08/25:1028RARE CRYSTALS, NEGATIVE FOR URIC ACID.ACUTE INFLAMMATION WITH TOXIC CHANGES, RULE OUT INFECTION.Elsa Ward MD 02/08/2025 AMENDED REPORT 02/08/25 1028 PATH REV previously reported as: Will follow Specimen source identificati on of body fluidOrdered By: Husam Jacobo on 02-07-2025 Specimen source Nom (Body fld) SYNOVIAL [facility] Specimen source Nom (Body fld) LEFT KNEE [facility] Synovial Fluid RBC, WBC AND Diffon 02-07-2025 Lymphocytes (Bld) [#/Vol] 2 10*3/uL [facility] Comment on above: Performed By: #### M 100.4001, L200.4175, M100.2900, L200.0400, M100.2000 #### [facility] [address] [place], [address] Monocytes (Bld) [#/Vol] 16 10*3/uL [facility] Comment on above: Performed By: #### M 100.4001, L200.4175, M100.2900, L200.0400, M100.2000 #### [facility] [address] [place], [address] NEUTROPHIL 82 High 0-25 [facility] Comment on above: Performed By: #### M 100.4001, L200.4175, M100.2900, L200.0400, M100.1999 #### [facility] [address] [place], [address] SYNOVIAL RBC 495 /mm3 High 0 [facility] Comment on above: Performed By: #### M 100.4001, L200.4175, M100.2900, L200.0400, M100.2000 #### [facility] [address] [place], [place], [id number] PATH COM/SYFL May follow Normal [facility] Comment on above: Performed By: #### M 100.4001, L200.4175, M100.2900, L200.0400, M100.1999 #### [facility] [address] [place], [place], [id number] Synovial fluid color determi nation (nominal result)Ordered By: Husam Jacobo on 02-07-2025 Color (Syn fld) Yellow Pale Yellow [facility] Synovial fluid erythrocytes count (number/volume)Ordered By: Husam Jacobo on 02-07-2025 RBC (Syn fld) [#/Vol] 495 /mm3 High 0-0 [facility] Synovial fluid monocyte perc entageOrdered By: Husam Jacobo on 02-07-2025 Monocytes/100 WBC (Syn fld) 16 % [facility] Synovial fluid mononuclear c ells/100 leukocytesOrdered By: Husam Jacobo on 02-07-2025 Mononuclear cells/100 WBC (Syn fld) 17.9 % [facility] Synovial fluid neutrophil pe rcentageOrdered By: Husam Jacobo on 02-07-2025 Neutrophils/100 WBC (Syn fld) 82 % High 0-25 [facility] Synovial fluid total cell co untOrdered By: Husam Jacobo on 02-07-2025 Cells Counted Total (Syn fld) [#] 27.1350 10^3/uL High 0.000-0.000 [facility] Comment on above: This is the Total Nu mber of Nucleated Cell Types in the Body Fluid. ED Prov Noteon 02-05-2025 ED Prov Note ED PROVIDER NOTE [facility] EMERGENCY DEPARTMENT NAME: Shruthi Newton AGE: 34 y.o. : 1990 VISIT DATE: 02/05/2025 CSN: [id number] PCP: Husam Jacobo MD Chief Complaint Patient presents with Knee Pain Back Pain Chief complaint knee pain History of present illness 34-year-old male who is here for left knee pain swelling to the proximal patella cannot recall any injury or twist or impacted injury. Started last night he awoke with this with more discomfort he has never had any knee problems Past Medical History: Diagnosis Date Factor V deficiency (HCC) Past Surgical History: Procedure Laterality Date ACHILLES TENDON SURGERY History reviewed. No pertinent family history. Social History [1] No current outpatient medications on file prior to encounter. Allergies[2] Review of Systems All other systems reviewed and are negative. Patient Vitals for the past 24 hrs: BP Temp Temp src Pulse Resp SpO2 Height Weight 02/05/25 0945 131/80 99 degrees F (37.2 degrees C) Temporal 90 16 100 % 6' 1 88.5 kg (195 lb) Physical Exam Vitals and nursing note reviewed. Exam conducted with a auto tech present. Constitutional: Appearance: Normal appearance. He is normal weight. HENT: Head: Normocephalic and atraumatic. Nose: Nose normal. Mouth/Throat: Mouth: Mucous membranes are dry. Cardiovascular: Rate and Rhythm: Normal rate and regular rhythm. Musculoskeletal: Comments: Examination of the knee reveals proximal patellar swelling significant patellar tendon and quadricep tendon function are intact Pulmonary: Effort: Pulmonary effort is normal. Breath sounds: Normal breath sounds. Neurological: Mental Status: He is alert. Laboratory & Radiographic Imaging (if done): No results found for this visit on 02/05/25. XR Knee Left 2 Views (Standard) Final Result Large suprapatellar effusion without an acute osseous abnormality. Consider MRI as clinically warranted. Chronic fragmentation of the tibial tuberosity suggesting Sinclair-Schlatter disease. Workstation ID: [id number] Procedures Medical Decision Making Differential diagnosis considered for this patient #1 knee sprain #2 knee meniscal cartilage injury #3 knee ligamentous tear or sprain #4 patellar rupture fracture #5 knee anterior tibial plateau fracture Considering the above differential diagnosis the following tests and treatments were considered and ordered with shared decision making x-ray of the right knee Toradol shot crutches knee immobilizer Amount and/or Complexity of Data Reviewed Radiology: ordered and independent interpretation performed. Details: X-ray reveals Daniel-Schlatter's disease, but no acute fracture Clinical Impression: 1. Acute pain of left knee 2. Muscle spasm ED Disposition ED Disposition Discharge Condition Stable Comment Shruthi Newton discharged to home/self care in stable condition. Follow-up Information 1. Romel Junior MD. Specialty: Orthopedic Surgery [address] [place] [id number] Contact information for after-discharge care Follow-up information has not been specified. New Prescriptions orphenadrine (NORFLEX) 100 mg tablet Take 1 (one) tablet (100 mg total) by mouth 2 (two) times a day for 10 days . ketorolac (TORADOL) 10 mg tablet Take 1 (one) tablet (10 mg total) by mouth every 6 (six) hours as needed . [1] Social History Socioeconomic History Marital status: Tobacco Use Smoking status: Never Smokeless tobacco: Never Vaping Use Vaping status: Never Used Substance and Sexual Activity Alcohol use: Never Drug use: Never [2] No Known Allergies Steph Garces MD 02/05/25 1024 AUTHENTICATED BY STEPH GARCES, ON 02/05/2025 10:24:21 [facility] XR KNEE LEFT 2 VIEWS ([address] RD)on 02-05-2025 XR KNEE LEFT 2 VIEWS (STANDARD) EXAMINATION: XR KNEE LEFT 2 VIEWS (STANDARD) 02/05/2025 9:53 am HISTORY: ORDERING SYSTEM PROVIDED HISTORY: swelling, TECHNOLOGIST PROVIDED HISTORY: Illness/Other Reason for exam: pt developed sudden knee swelling through the night last night has minimal pain and discomfort at this time Cancer History: n Surgery, RadiationHistory: n Encounter Type: Initial Additional signs and symptoms: na ORDERING SYSTEM PROVIDED DIAGNOSIS CODES: COMPARISON: None FINDINGS: Two views. No fractures. The joint spaces are preserved. Chronic fragmentation of the tibial tuberosity. No aggressive osseous lesions or bony demineralization. Large suprapatellar effusion. IMPRESSION: Large suprapatellar effusion without an acute osseous abnormality. Consider MRI as clinically warranted. Chronic fragmentation of the tibial tuberosity suggesting Sinclair-Schlatter disease. Workstation ID: [id number] Dictated by: LINDA SHEPHERD on TueFeb 05, 2025 10:20:45 AM EDT Transcribed by: LINDA SHEPHERD on TueFeb 05, 2025 10:20:45 AM EDT Finalized by: LINDA SHEPHERD on TueFeb 05, 2025 10:20:45 AM EDT [facility] Comment on above: Order Comment: Injur y/Trauma or Illness?:Illness/Other How long have you had these symptoms (acute/chronic)?:Acute Reason for exam?:pt developed sudden knee swelling through the night last night has minimal pain and discomfort at this time History of cancer?:n Surgeries, chemotherapy, or radiation?:n Type of Exam?:Initial Additional signs and symptoms?:shireen Goldman 05-07-2024 CNOV Office Visit ([facility] ) -------- SHRUTHI NEWTON ([id number]) 1990 M Date Time Provider Department 05/07/24 7:30 AM POSTLETCLEMENTINA HERNANDEZ During your visit today, we recorded the following information about you: Pulse Blood pressure 71/minute 120/84 Clementina Zuniga APRN.TERMINAL OPERATIONS SUPERVISOR 05/07/2024 7:42 AM Signed [facility] [address] [place] [id number] UROLOGY OFFICE VISIT 05/07/2024 at 7:41 AM PATIENT NAME: Shruthi Newton DATE OF : 1990 TODAY'S DATE: 05/07/2024 Referring Provider: No referring provider defined for this encounter. Chief Complaint: Patient presents with: Consult: Vasectomy consult History of Present Illness: Mr. Newton is a 33 year old male who presents to the office regarding discussion of permanent sterilization. Patient reports fathering 4 children and explicitly states that he does not desire to father children in the future. Patient is . 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 He denies vasovagal episodes. He denies personal or family history of anesthesia complications. Denies prior urologic surgery or hernia repair history. History of undescended testis: Denies History of hydrocele or varicocele: Denies History of stone disease: Reports History of UTI/prostatitis/epididim itis/STI: Denies Sexual frequency/libido: Intact, no ED Urinary symptoms: Denies Hematuria: Denies Patient does report factor 5. Does not take any blood thinners. Review of Systems Constitutional: Negative for chills and fever. Genitourinary: See HPI Past Medical History: PAST MEDICAL HISTORY Diagnosis Date PMH - PAST MEDICAL HISTORY OF post-strept Glomerulonephritis PMH - PAST MEDICAL HISTORY OF 03/15/2003 color vision normal PMH - PAST MEDICAL HISTORY OF left wrist and ring finger fractures and also fracture of bone in right foot Routine or ritual circumcision Past Surgical History: PAST SURGICAL HISTORY Procedure Laterality Date CIRCUMCISION W/CLAMP/OTH DEV W/BLOCK Social History: Social History Tobacco Use Smoking status: Never Smokeless tobacco: Never Substance Use Topics Alcohol use: Yes Comment: rare Drug use: No Medications Prior to Admission medications : Medication naproxen (NAPROSYN) 500 mg tablet, Sig Take 1 tablet by mouth twice daily as needed. TAKE WITH FOOD, Start Date 07/05/17, End Date , Taking? , Authorizing Provider Shelbi Bateman ALLERGIES Allergen Reactions Adhesive Tape-Silic* Rash Vitals: BP 120/84 Pulse 71 SpO2 97% Physical Exam Vitals and nursing note reviewed. Constitutional: Appearance: Normal appearance. Abdominal: Hernia: There is no hernia in the left inguinal area or right inguinal area. Genitourinary: Penis: Normal. Testes: Normal. Epididymis: Right: Normal. Left: Normal. Comments: Bilateral vas deferens able to be brought anteriorly to the superficial surface of the scrotum. Testicles normal bilaterally without mass or lesion. No hydrocele or varicocele bilaterally. Skin: General: Skin is warm and dry. Neurological: Mental Status: He is alert and oriented to person, place, and time. Psychiatric: Mood and Affect: Mood normal. Behavior: Behavior normal. The sensitive examination was discussed with the Patient or Patient's Authorized Ball Thread Machine Tender. As applicable, any other physician, advance practice provider, medical student, or other health professional student that will be observing or involved in the sensitive examination for educational or training purposes was discussed with the Patient or Authorized Ball Thread Machine Tender. The Patient or Authorized Ball Thread Machine Tender has agreed to proceed with the sensitive examination. (Sensitive examination includes inspection and/or palpation of the breasts, pelvis, prostate and anorectal regions) Labs: No results found for: CREAT No results found for: PSA Glucose, Urine (mg/dL) Date Value 01/22/2008 NEG Bilirubin, Urine (no units) Date Value 01/22/2008 NEG Ketones, Urine (no units) Date Value 01/22/2008 NEG Specific [place], Ur (no units) Date Value 01/22/2008 1.010 Hemoglobin/Blood,Ur (no units) Date Value 01/22/2008 NEG pH, Urine (no units) Date Value 01/22/2008 8.0 Protein, Urine (mg/dL) Date Value 01/22/2008 TRACE Nitrites (no units) Date Value 01/22/2008 NEG Radiology Review: No pertinent imaging to review. Procedure: N/A ASSESSMENT/PLAN: 1. Encounter for vasectomy counseling - ICD9: V25.09, ICD10: Z30.09 (primary diagnosis) - DIAZEPAM 10 MG TABLET - CEPHALEXIN 500 MG CAPSULE 2. Request for sterilization - ICD9: V25.2, ICD10: Z30.2 - DIAZEPAM 10 MG TABLET - CEPHALEXIN 500 MG CAPSULE - Patient states unequivocal desire to never father a child in the future. - Patient desires permanent (more content not included)... Normal [facility] Absolute lymphocyte counton 11-24-2021 Lymphocytes Auto (Unsp spec) [#/Vol] 2.40 10*3/uL 0.83-4.51 [facility] Work Phone: Basophil percentageon 2021 Basophil percentage 0 SEEN /hpf [facility] Work Phone: Basophils/100 WBC (Bld) 0.6 % 0-1 [facility] Work Phone: Chloride [Moles/Vol] 107 mmol/L 98-107 [facility] Work Phone: Eosinophils/100 WBC (Bld) 1.1 % 0-5 [facility] Work Phone: Glucose [Mass/Vol] 91 mg/dL 74-106 [facility] Work Phone: Neutrophils (Bld) [#/Vol] 5.7 10*3/uL 2.0-7.7 [facility] Work Phone: Neutrophils/100 WBC (Bld) 64.2 % 47-70 [facility] Work Phone: Potassium [Moles/Vol] 4.1 mmol/L 3.5-5.1 [facility] Work Phone: Sodium [Moles/Vol] 139 mmol/L 136-145 [facility] Work Phone: WBC (Bld) [#/Vol] 8.9 10*3/uL 4.4-11.0 [facility] Work Phone: Bilirubin Test strip Ql (U)o n 11-24-2021 Bilirubin Ql (U) Negative Negative [facility] Work Phone: Blood erythrocytes count (nu mber/volume)on 11-24-2021 RBC (Bld) [#/Vol] 5.14 10*6/uL 4.6-6.2 [facility]: Blood hemoglobin measurement (mass/volume)on 11-24-2021 Hemoglobin (Bld) [Mass/Vol] 14.3 g/dL 13.0-16.5 [facility] Work Phone: Blood lymphocytes/100 leukoc yteson 11-24-2021 Lymphocytes/100 WBC (Bld) 26.9 % 19-41 [facility] Work Phone: Blood monocytes/100 leukocyt eson 11-24-2021 Monocytes/100 WBC (Bld) 7.0 % 0-10 [facility] Work Phone: Blood platelet mean volumeon 11-24-2021 Platelet mean volume (Bld) [Entitic vol] 10.0 fL 6.2-12.0 [facility] Work Phone: [phone] Determination of erythrocyte mean corpuscular volume (MCV)on 11-24-2021 MCV (RBC) [Entitic vol] 84.4 fL 80-94 [facility] Work Phone: [phone] Hematocrit Auto (Bld) [Volum e fraction]on 11-24-2021 Hematocrit (Bld) [Volume fraction] 43.4 % 40-54 [facility] Work Phone: [phone] Ketones Test strip Ql (U)on 11-24-2021 Ketones Ql (U) Negative Negative [facility] Work Phone: [phone] Laboratory - Chemistry and C hemistry - challengeon 11-24-2021 CO2 [Moles/Vol] 27.0 mmol/L 21.0-32.0 [facility] Work Phone: [phone] Urea nitrogen/Creatinine [Mass ratio] 15.9 mg/mg 10-20 [facility] Work Phone: [phone] Laboratory - Hematology and Cell countson 11-24-2021 Erythrocyte distribution width (RBC) [Entitic vol] 37.4 fL 35.1-43.9 [facility] Work Phone: [phone] Erythrocyte distribution width (RBC) [Ratio] 12.3 % 11.6-14.6 [facility] Work Phone: [phone] Immature granulocytes/100 WBC (Bld) 0.200 % 0.0-0.9 [facility] Work Phone: [phone] Comment on above: IG% - Immature Granu locytes (promyelocytes, myelocytes and metamyelocytes) > 1% indicates that a LEFT SHIFT is Present. MCH (RBC) [Entitic mass] 27.8 pg 27.0-32.0 [facility] Work Phone: [phone] Nucleated RBC/100 WBC (Bld) [Ratio] 0 % 0-5 [facility] Work Phone: [phone] MCHC Auto (RBC) [Mass/Vol]on 11-24-2021 MCHC (RBC) [Mass/Vol] 32.9 g/dL 32-36 [facility] Work Phone: [phone] Mucus LM Ql (Urine sed)on Mucus Ql (Urine sed) 0 SEEN /hpf [facility] Work Phone: [phone] Nitrite Test strip Ql (U)on 11-24-2021 Nitrite Ql (U) Negative Negative [facility] Work Phone: [phone] No Panel Informationon 11-24 Estimated Creatinine Clearance Calc 131.04 ml/min [facility] Work Phone: [phone] Estimated GFR (MDRD) Amer 121 mL/min >60 [facility] Work Phone: [phone] Comment on above: GFR Calc Estimated GFR (MDRD) Non-Af Amer 100 mL/min >60 [facility] Work Phone: [phone] Comment on above: Non- GFR Calc Platelets bldon 11-24-2021 Platelets (Bld) [#/Vol] 290 10*3/uL 150-450 [facility] Work Phone: [phone] Protein Test strip Ql (U)on 11-24-2021 Protein Ql (U) 15 mg/dl Negative [facility] Work Phone: [phone] Serum or plasma calcium evan urement (mass/volume)on 11-24-2021 Calcium [Mass/Vol] 9.0 mg/dL 8.5-10.1 [facility] Work Phone: [phone] Serum or plasma creatinine m easurement (mass/volume)on 11-24-2021 Creatinine [Mass/Vol] 0.94 mg/dL 0.70-1.30 [facility] Work Phone: [phone] Comment on above: The validity of the calculated GFR & GFRAA in patients over 70 years has not been determined. Clinical correlation is essential. Serum or plasma urea nitroge n measurement (mass/volume)on 11-24-2021 Urea nitrogen [Mass/Vol] 15 mg/dL 7-18 [facility] Work Phone: Squamous epithelial cells de tection in urine sediment by light microscopyon 11-24-2021 Epithelial cells.squamous LM Ql (Urine sed) 0 SEEN /hpf [facility] Work Phone: Thin prep Papanicolaou smear with manual screeningon 11-24-2021 Thin prep Papanicolaou smear with manual screening 5 5-15 [facility] Work Phone: Urine blood detectionon - RBC Ql (U) 250 /ul Negative [facility] Work Phone: RBC Ql (U) 10-25 SEEN /hpf [facility] Work Phone: Urine clarityon 11-24-2021 Clarity (U) Sl. Cloudy Clear [facility] Work Phone: Urine color determinationon 11-24-2021 Color (U) Yellow Yellow [facility] Work Phone: Urine glucose detectionon Glucose Ql (U) Normal mg/dl Normal [facility] Work Phone: Urine leukocyte esterase det ection by dipstickon 11-24-2021 Leukocyte esterase Test strip Ql (U) Negative Negative [facility] Work Phone: Urine pHon 11-24-2021 pH (U) 7.0 [pH] [facility] Work Phone: Urine sediment bacteria coun t by microscopy (number/high power field)on 11-24-2021 Bacteria LM.HPF (Urine sed) [#/Area] 0 /[HPF] None Seen [facility] Work Phone: Urine specific gravity measu rementon 11-24-2021 Specific gravity (U) [Rel density] 1.010 [facility] Work Phone: Urobilinogen Auto test strip Ql (U)on 11-24-2021 Urobilinogen Ql (U) Normal mg/dl Normal [facility] Work Phone: Basophil percentageon 2021 Chloride [Moles/Vol] 106 mmol/L 98-107 [facility] Work Phone: [phone] Cholesterol [Mass/Vol] 149 mg/dL <[facility] Work Phone: Comment on above: <200 mg/dL Desirable 200-240 mg/dL Borderline >240 mg/dL High Risk Glucose [Mass/Vol] 84 mg/dL 74-106 [facility] Work Phone: [phone] Potassium [Moles/Vol] 3.9 mmol/L 3.5-5.1 [facility] [facility] Work Phone: [phone] Sodium [Moles/Vol] 139 mmol/L 136-145 [facility] Work Phone: [phone] Triglyceride [Mass/Vol] 72 mg/dL [facility] Work Phone: Comment on above: The drugs N-Acetylcy steine and Metamizole may falsely depress this assay.Serum Triglycerides Reference Interval Normal <150 mg/dL Borderline high 150 - 199 mg/dL High 200 - 499 mg/dL Very High > or = 500 mg/dL Laboratory - Chemistry and C hemistry - challengeon 11-09-2021 CO2 [Moles/Vol] 24.0 mmol/L 21.0-32.0 [facility] Work Phone: [phone] Urea nitrogen/Creatinine [Mass ratio] 12.7 mg/mg 10-20 [facility] Work Phone: No Panel Informationon 11-09 Estimated GFR (MDRD) Amer 121 mL/min >60 [facility] Work Phone: [phone] Comment on above: GFR Calc Estimated GFR (MDRD) Non-Af Amer 100 mL/min >60 [facility] Work Phone: [phone] Comment on above: Non- GFR Calc Serum or plasma calcium evan urement (mass/volume)on 11-09-2021 Calcium [Mass/Vol] 9.5 mg/dL 8.5-10.1 [facility] Work Phone: [phone] Serum or plasma cholesterol in HDL measurement (mass/volume)on 11-09-2021 Cholesterol in HDL [Mass/Vol] 48 mg/dL [facility] Work Phone: Comment on above: The drugs N-Acetylcy steine and Metamizole may falsely depress this assay. Reference Range HDL <40 mg/dL Low HDL Cholesterol HDL >or= 60 mg/dL High HDL Cholesterol Serum or plasma cholesterol in VLDL measurement (mass/volume)on 11-09-2021 Cholesterol in VLDL [Mass/Vol] 14 mg/dL 5-40 [facility] Work Phone: Serum or plasma creatinine m easurement (mass/volume)on 11-09-2021 Creatinine [Mass/Vol] 0.95 mg/dL 0.70-1.30 [facility] Work Phone: Comment on above: The validity of the calculated GFR & GFRAA in patients over 70 years has not been determined. Clinical correlation is essential. Serum or plasma low density lipoprotein (LDL) cholesterol measurement (mass/volume)on 11-09-2021 Cholesterol in LDL [Mass/Vol] 87 mg/dL 0-130 [facility] Work Phone: Serum or plasma urea nitroge n measurement (mass/volume)on 11-09-2021 Urea nitrogen [Mass/Vol] 12 mg/dL 7-18 [facility] Work Phone: Thin prep Papanicolaou smear with manual screeningon 11-09-2021 Thin prep Papanicolaou smear with manual screening 9 5-15 [facility] Work Phone: ED NOTEon 07-05-2017 ED NOTE HNO ID: [id number]: Sadaf (Rn) VIKTOR Lehmanervice: Emergency MedicineAuthor Type: Registered NurseType: ED NotesFiled: 07/05/2017 9:21 PMNote Text: Discharge instructions and prescriptions reviewed with patient viateachback. Pt declined instructions for crutches, stating he has usedcrutches in the past. 2 prescriptions sent with patient. Pt awake andalert, respirations stable. Pt verbalizes understanding. No furtherquestions for this RN. Pt gait steady on crutches, was able to ambulateindependently with crutches on discharge. Normal [facility] ED NOTE HNO ID: [id number] Author: Sadaf (Rn) Fallon RN Service: Emergency Medicine Author Type: Registered Nurse Type: ED Notes Filed: 07/05/2017 7:35 PM Note Text: Xray at bedside [facility] ED NOTE HNO ID: [id number] Author: Tomeka (Rn) KRIS Ludwig Service: (none) Author Type: Registered Nurse Type: ED Notes Filed: 07/05/2017 7:08 PM Note Text: Playing basketball, heard a pop in left heel, pain radiates up leg with numbness [facility] ED PROV NOTEon 07-05-2017 ED PROV NOTE HNO ID: [id number]: Shelbi Dennis) ReillyService: Emergency MedicineAuthor Type: Physician AssistantType: ED Provider NotesFiled: 07/05/2017 9:54 PMNote Text:ED Provider NotePatient Name: Shruthi NewtonMRN: [id number] DATE: 07/05/17HistoryPatient presents with:Heel Pain: left heel pain, heard a pop playing basketball, pain radiatesup [id number] male presents with left Achilles injury. Patient reports hewas playing basketball and jumped and heard a pop in his heel. Painradiates left leg. No other injury. He's never had pain like this in thepast. He was unable to obtain today status post injury. He hasdifficulty with plantar flexion. No back pain. No numbness. All otherreview systems unremarkable.PAST MEDICAL HISTORYDiagnosis Date- PMH - PAST MEDICAL HISTORY OF post-strept Glomerulonephritis- PMH - PAST MEDICAL HISTORY OF 03/15/2003 color vision normal- PMH - PAST MEDICAL HISTORY OF left wrist and ring finger fractures and also fracture of bone in rightfoot- Routine or ritual circumcisionPAST SURGICAL HISTORYProcedure Laterality Date- CIRCUMCISION,CLAMP,[place] RNFAMILY HISTORYProblem Relation Age of Onset- Diabetes Brother- Diabetes Paternal Grandmother borderline- Heart Paternal Grandfather MISocial HistorySocial History Main Topics- Smoking status: Never Smoker- Smokeless tobacco: Never Used- Alcohol use Yes Comment: rare- Drug use: No- Sexual activity: Not AskedALLERGIESNo Known AllergiesReview of SystemsConstitutional: Negative for fever.Respiratory: Negative for cough and shortness of breath.Gastrointestinal: Negative for nausea and vomiting.Musculoskeletal : Left ankle and lower leg injury.Skin: Negative for rash and wound.Neurological: Negative for numbness.All other systems reviewed and are negative.Physical ExamBP 153/75 Pulse 88 Resp 16 Ht 6' 1 (1.85m) Wt 180 lb (81.6kg) SpO2 100% BMI 23.75 kg/(m2).Physical ExamConstitutional: He is oriented to person, place, and time. He appearswell-developed and well-nourished. No distress.HENT:Head: Normocephalic and atraumatic.Eyes: EOM are normal. Pupils are equal, round, and reactive to light.Neck: Normal range of motion. Neck supple.Cardiovascular: Normal rate, regular rhythm and intact distal pulses.Pulmonary/Chest: Effort normal and breath sounds normal. No respiratorydistress. He has no wheezes.Abdominal: Soft. Bowel sounds are normal. He exhibits no distension. Thereis no tenderness. There is no rebound and no guarding.Musculoskeletal : Left ankle: He exhibits normal pulse. Achilles tendon exhibits pain,defect and abnormal Baum's test results.There is defect along the Achilles tendon. Mild tenderness palpationthere and with an calf. Abnormal Baum test.Patient unable to plantar flex. Good cap refill. Able to move toes.Normal sensation. Compartments are soft. 2+ PT and DP pulses.Right lower extremity unremarkable. Normal Baum test exhibited inright lower extremity.Neurological: He is alert and oriented to person, place, and time. Nocranial nerve deficit.Skin: Skin is warm and dry. No rash noted. He is not diaphoretic. Noerythema.Psychiatric: He has a normal mood and affect.Diagnostic TestingED Labs Ordered and Reviewed - No data to displayXR ANKLE GENERAL 3V AP/LAT/OBL LT Final Result IMPRESSION: No acute finding. Tribal Judge: PSCB Transcribe Date/Time: Jul 05 2017 7:48P Dictated by : LUIS GRIJALVA MD This examination was interpreted and the report reviewed and electronically signed by: LUIS GRIJALVA MD on Jul 05 2017 7:50PM ESTProceduresMedical Decision Making / ED CourseED CourseOn evaluation and concern for a left Achilles injury. There is palpabledeformity. Abnormal Baum's test. He is neurovascular intact.Compartments are soft. X-ray was ordered to rule out any other acuteprocess. X-ray shows no acute process. Patient be placed in the splintin slight plantarflexion at approximately 30?. He should benonweightbearing. He should be on crutches. Ice elevate. He was treatedwith a [place] in ED. Ollie James. Referred to on-callorthopedic physician. He needs to follow-up. Return precautions given.Discharged home in stable condition.Encounter Diagnosis ICD-10-CM1. Achilles tendon injury, left, initial encounter S86.002AHYDROcodone-acet aminophen (NORCO) 5-325 mg per tabletPlanThe Patient was DISCHARGED: Counseled patient regarding radiology resultsAND suspected diagnosis AND need for follow-up. Discharged home with verbaland written instructions. They were instructed to return as needed forpersistent or worsening symptoms or any new concerns.Condition at time of disposition: stableSIGNATURE: JOAO Huitron-De (Kerry Chavez07/05/17 3251 [facility] XR ANKLE 3V AP/LAT/OBL LTon 07-05-2017 XR ANKLE 3V AP/LAT/OBL LT * * *Final Report* * *DATE OF EXAM: Jul 05 2017 7:39PM MDX 5298 - XR ANKLE 3V AP/LAT/OBL LT / REASON: Injury * * * * Physician Interpretation * * * * Left ankleHISTORY: 27 years oldClinical information: InjuryFELL PLAYING BASKETBALLTECHNIQUE:Imag es: XR ANKLE 3V AP/LAT/OBL LTComparison: None.RESULT:Findings:No fracture or dislocation is evident.IMPRESSION:No acute finding.Tribal Judge : LAUREN Transcribe Date/Time: Jul 05 2017 7:48PDictated by : LUIS GRIJALVA MDThis examination was interpreted and the report reviewed and electronically signed by: LUIS GRIJALVA MD on Jul 05 2017 7:50PM [id number] N [facility] Vital Signs Date Time Vital Sign Value Performing Clinician Cody hoffmann 05-07-2024 07:16-0500 Diastolic blood pressure 84 mm[Hg] Clementina Zuniga FACTORY LAY OUT ENGINEER.TERMINAL OPERATIONS SUPERVISOR Work Phone: [facility] 05-07-2024 07:16-0500 Heart rate 71 /min Clementina Postlethwait FACTORY LAY OUT ENGINEER.TERMINAL OPERATIONS SUPERVISOR Work Phone: [facility] 05-07-2024 07:16-0500 SaO2% (BldA) [Mass fraction] 97 % Clementina Postlethwait FACTORY LAY OUT ENGINEER.TERMINAL OPERATIONS SUPERVISOR Work Phone: [facility] 05-07-2024 07:16-0500 Systolic blood pressure 120 mm[Hg] Clementina Postlethwait FACTORY LAY OUT ENGINEER.TERMINAL OPERATIONS SUPERVISOR Work Phone: [facility] 11-24-2021 10:23-0400 Diastolic blood pressure 82 mm[Hg] [facility] Work Phone: 11-24-2021 10:23-0400 Heart rate 70 /min [facility] Work Phone: 11-24-2021 10:23-0400 Respiratory rate 16 /min [facility] Work Phone: 11-24-2021 10:23-0400 SaO2% (BldA) [Mass fraction] 99 % [facility] Work Phone: 11-24-2021 10:23-0400 Systolic blood pressure 130 mm[Hg] [facility] Work Phone: 11-24-2021 08:18-0400 Body height 185.42 cm [facility] Work Phone: 11-24-2021 08:18-0400 Body mass index (BMI) [Ratio] 26.4 kg/m2 [facility] Work Phone: 11-24-2021 08:18-0400 Body temperature 98 [degF] [facility] Work Phone: 11-24-2021 08:18-0400 Body weight 91 kg [facility] Work Phone: Encounters Encounter Date Encounter Type Care Provider Facility Start: 02-14-2025 Encounter for genera l adult medical examination without abnormal findings Husam Jacobo [facility] Start: 02-07-2025 End: 02-07-[address] Husam Jacobo MD Work Phone: -Laboratory Specimen Start: 02-07-2025 End: 02-07-[address] Husam Jacobo MD -Laboratory Specimen Work Phone: Start: 02-07-2025 End: 02-07-2025 ambulatory Husam Jacboo Facility:[facility] Start: 02-05-2025 End: 02-05-2025 [facility] Start: 05-07-2024 End: 05-07-2024 Patient encounter procedure Clementina Wynne Inezrufino FACTORY LAY OUT ENGINEERKleverTERMINAL OPERATIONS SUPERVISOR Work Phone: [facility] Comment on above: Encounter for vasect adrienne counseling (Primary Dx); Request for sterilization Start: 05-07-2024 End: 05-07-2024 ambulatory CLEMENTINA WYNNE DESIREERONALDODAVID Facility:[facility] Start: 11-24-2021 End: 11-24-2021 Emergency department patient visit [facility] Start: 11-09-2021 End: 11-09-2021 [facility] encounter [facility] Start: 07-05-2017 End: 07-05-2017 Emergency department patient visit [facility] Procedures Date Procedure Procedure Detail Performing Clinician Start: 02-07-[address] Husam Jacobo MD Work Phone: Start: 02-07-2025 Gram stain microscopy D red Jacobo MD Work Phone: Start: 02-07-2025 End: 02-07-2025 Microbial culture, body fluid Dr. Husam Jacobo MD Work Phone: Start: 11-24-2021 CT of abdomen and pe lvis without contrast Plan of Treatment Date Care Activity Detail Author Start: 05-31-2026 Urine microalbumin profile DTaP,Tdap,Td Vaccine (8 - Td or Tdap) [facility] Start: 06-29-2024 End: 06-29-2024 Patient encounter procedure 06/29/2024 12:00 PM EST Office Visit [facility] [address] [place] [address] Leonard Ko MD [address] [place] [address] vasectomy [facility] Comment on above: vasectomy Start: 03-04-2024 Covid-19 Vaccine ( season) Covid-19 Vaccine ( season) [facility] Start: 03-04-2024 Influenza vaccination Influenza Vacc ine (#1) [facility] Start: 2010 Anxiety Screening Anxiety Screening [facility] Start: 2010 Depression Screening Depression Scre ening [facility] Start: 2010 Hepatitis C screening Hepatitis C Sc levi [facility] Start: 2010 HIV screening HIV Screening [facility] Patient Education ED Kidney Ston e w/ [facility] Work Phone: Patient referral [facility] Work Phone: Immunizations Immunization Date Immunization Notes Care Provider Berto robledo 04-22-2012 influenza virus vaccine, unspecified formulation Clementina Postlethwait FACTORY LAY OUT ENGINEER.[facility] Work Phone: [facility] 11-04-2011 tetanus toxoid, reduced diphtheria toxoid, and acellular pertussis vaccine, adsorbed Clementina Postlethwait FACTORY LAY OUT ENGINEER.[facility] Work Phone: [facility] Work Phone: 01-21-2011 Meningococcal, MCV4, unspecified conjugate formulation(groups A, C, Y and W-135) Clementina Postlethwait FACTORY LAY OUT ENGINEER.TERMINAL OPERATIONS SUPERVISOR Work Phone: [facility] 01-20-2005 measles, mumps and rubella virus vaccine Clementina Postlethwait FACTORY LAY OUT ENGINEER.TERMINAL OPERATIONS SUPERVISOR Work Phone: [facility] 01-20-2005 Meningococcal, MCV4, unspecified conjugate formulation(groups A, C, Y and W-135) Clementina Postlethwait FACTORY LAY OUT ENGINEER.[facility] Work Phone: [facility] 01-20-2005 tetanus and diphther ia toxoids, adsorbed, preservative free, for adult use (2 Lf of tetanus toxoid and 2 Lf of diphtheria toxoid) Clementina Postlethwait FACTORY LAY OUT ENGINEER.[facility] Work Phone: [facility] 07-04-2000 chicken pox (disease) Wyatt e Postlethwait FACTORY LAY OUT ENGINEER.TERMINAL OPERATIONS SUPERVISOR Work Phone: [facility] Work Phone: 07-08-1997 diphtheria, tetanus toxoids and acellular pertussis vaccine Clementina Postlethwait FACTORY LAY OUT ENGINEER[facility] Work Phone: [facility] Work Phone: 07-08-1997 trivalent poliovirus vaccine, live, oral Clementina Postlethwait FACTORY LAY OUT ENGINEER[facility] Work Phone: [facility] 12-18-1993 diphtheria, tetanus toxoids and pertussis vaccine Clementina Postlethwait FACTORY LAY OUT ENGINEER[facility] Work Phone: [facility] 12-18-1993 trivalent poliovirus vaccine, live, oral Clementina Postlethwait FACTORY LAY OUT ENGINEER[facility] Work Phone: [facility] 09-22-1993 haemophilus influenz ae type b vaccine, HbOC conjugate Clementina Postlethwait FACTORY LAY OUT ENGINEER[facility] Work Phone: [facility] 09-22-1993 measles, mumps and rubella virus vaccine Clementina Postlethwait FACTORY LAY OUT ENGINEER[facility] Work Phone: [facility] 02-05-1993 hepatitis B vaccine, pediatric or pediatric/adolescent dosage Clementina Postlethwait FACTORY LAY OUT ENGINEER[facility] Work Phone: [facility] 1992 diphtheria, tetanus toxoids and pertussis vaccine Clementina Postlethwait FACTORY LAY OUT ENGINEER[facility] Work Phone: [facility] 1992 haemophilus influenz ae type b vaccine, HbOC conjugate Clementina Postlethwait FACTORY LAY OUT ENGINEER.TERMINAL OPERATIONS SUPERVISOR Work Phone: [facility] 1992 hepatitis B vaccine, pediatric or pediatric/adolescent dosage Clementina Postlethwait FACTORY LAY OUT ENGINEER[facility] Work Phone: [facility] 1992 diphtheria, tetanus toxoids and pertussis vaccine Clementina Postlethwait FACTORY LAY OUT ENGINEER[facility] Work Phone: [facility] 1992 haemophilus influenz ae type b vaccine, HbOC conjugate Clementina Postlethwait FACTORY LAY OUT ENGINEER[facility] Work Phone: [facility] 1992 hepatitis B vaccine, pediatric or pediatric/adolescent dosage Clementina Postlethwait FACTORY LAY OUT ENGINEER[facility] Work Phone: [facility] 1992 trivalent poliovirus vaccine, live, oral Clementina Postlethwait FACTORY LAY OUT ENGINEER.[facility] Work Phone: [facility] 1992 diphtheria, tetanus toxoids and pertussis vaccine Clementina Postlethwait FACTORY LAY OUT ENGINEER[facility] Work Phone: [facility] Work Phone: 1992 haemophilus influenz ae type b vaccine, HbOC conjugate Clementina Postlethwait FACTORY LAY OUT ENGINEER.[facility] Work Phone: [facility] 1992 trivalent poliovirus vaccine, live, oral Clementina Postlethwait FACTORY LAY OUT ENGINEER.[facility] Work Phone: [facility] Payers Date Payer Category Payer Self-pay [id number] 2019 Unknown [id number] 2019 Unknown [id number] 1992 Unknown [id number] Unknown [employer] OTHER [id number] Unknown [id number] Social History Date Type Detail Facility Start: 08-01-2017 End: 11-24-2021 Tobacco smoking status LAIS Unknown if ever smoked [facility] Work Phone: Start: 1990 Sex Assigned At Male [facility] Start: 11-14-2010 End: 11-24-2021 Tobacco smoking status NHIS Never smoked tobacco [facility] Start: 11-14-2010 Tobacco use and exposure Smokeless tobacco non-user [facility] Start: 05-07-2024 Alcoholic beverage intake Current drinker of alcohol (finding) [facility] Start: 05-07-2024 History of Social function [facility] Start: 05-07-2024 Tobacco use panel [facility] National Score (1-10 0), lower number is lower risk 53 [facility] Start: 07-05-2017 [facility] Start: 1990 Sex assigned at Not on file [facility] Instructions 05-07-2024 Patient Instructions Note Date & Type Note Facility 05-07-2024 Instructions Clementina Zuniga APRN.TERMINAL OPERATIONS SUPERVISOR - 05/07/2024 7:32 AM EST Images from the original note were not included. Post Vasectomy Instructions These instructions are designed to improve your recovery after vasectomy. If you do not comply with these recommendations, you may make recovery delayed or may cause complications. The following situations may occur after vasectomy, and these are normal and expected after routine vasectomy: Small bruises in the skin of the scrotum around the vasectomy site(s). The vasectomy skin site may be slightly apart (1-2 mm), but the skin edges will come together within a few days. A very small nodule (size of a pea) at the actual vasectomy site, which represents the suture(s) and scar formation. These nodules will soften with time. A small amount of ache or pain or slight discomfort in the scrotal area or testicles A small amount of bloody oozing from the skin site. The following situations may occur after vasectomy, and these are the abnormal and should be reported to the physician or physician personal banking advisor: A large amount of bloody oozing from the vasectomy skin site that persists and does not stop after manual compression for several minutes. A large collection of blood (large golf ball size) underneath the skin of the scrotum at or near the skin vasectomy site. Significant tenderness or pain in the testicles or the epididymis (small organ at the top of the testicle), especially if one side feels different than the other. Significant redness and tenderness at or drainage from the skin vasectomy site. Please adhere to the following recommendations: Avoid heavy lifting, straining, vigorous activity or exercise (bicycle riding, swimming, running, weight lifting) for 7 days after vasectomy. Non exercise walking is okay. Avoid intercourse for 7 days after vasectomy. You may shower briefly 24 hours after vasectomy. You must use contraception until sperm is demonstrated to be absent on semen analysis 3 months after vasectomy. We will call you with semen analysis results. You will be given instructions on how to schedule and provide your sample. After your Vasectomy 1. Apply an ice bag to the surgical area as necessary for the first 24 hours. 2. No dressing is needed over the incisions. 3. Some men feel more comfortable wearing a scrotal support. 4. It is normal to experience swelling, discoloration or soreness after your vasectomy. 5. You may shower as normal. Do not take a bath for 1 week. 6. Do not have sexual intercourse including masturbation until one week after your procedure and use contraceptives. 7. If instructed to take any medication, please take as prescribed. documented in this encounter [facility] History of Present illness Narrative 05-07-2024 Clementina Zuniga APRN.CNP - 05/07/2024 7:30 AM EST Note Date & Type Note Facility 05-07-2024 History of Presen t illness Narrative Images from the original note were not included. [facility] [address] [place] [id number] UROLOGY OFFICE VISIT 05/07/2024 at 7:41 AM PATIENT NAME: Shruthi Newton DATE OF : 1990 TODAY'S DATE: 05/07/2024 Referring Provider: No referring provider defined for this encounter. Chief Complaint: Patient presents with: Consult: Vasectomy consult History of Present Illness: Mr. Newton is a 33 year old male who presents to the office regarding discussion of permanent sterilization. Patient reports fathering 4 children and explicitly states that he does not desire to father children in the future. Patient is . 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 He denies vasovagal episodes. He denies personal or family history of anesthesia complications. Denies prior urologic surgery or hernia repair history. History of undescended testis: Denies History of hydrocele or varicocele: Denies History of stone disease: Reports History of UTI/prostatitis/epididimitis/STI: Denies Sexual frequency/libido: Intact, no ED Urinary symptoms: Denies Hematuria: Denies Patient does report factor 5. Does not take any blood thinners. Review of Systems Constitutional: Negative for chills and fever. Genitourinary: See HPI Past Medical History: PAST MEDICAL HISTORY Diagnosis Date PMH - PAST MEDICAL HISTORY OF post-strept Glomerulonephritis PMH - PAST MEDICAL HISTORY OF 03/15/2003 color vision normal PMH - PAST MEDICAL HISTORY OF left wrist and ring finger fractures and also fracture of bone in right foot Routine or ritual circumcision Past Surgical History: PAST SURGICAL HISTORY Procedure Laterality Date CIRCUMCISION W/CLAMP/OTH DEV W/BLOCK Social History: Social History Tobacco Use Smoking status: Never Smokeless tobacco: Never Substance Use Topics Alcohol use: Yes Comment: rare Drug use: No Medications Prior to Admission medications : Medication naproxen (NAPROSYN) 500 mg tablet, Sig Take 1 tablet by mouth twice daily as needed. TAKE WITH FOOD, Start Date 07/05/17, End Date , Taking? , Authorizing Provider Shelbi Bateman ALLERGIES Allergen Reactions Adhesive Tape-Silic* Rash Vitals: BP 120/84 Pulse 71 SpO2 97% Physical Exam Vitals and nursing note reviewed. Constitutional: Appearance: Normal appearance. Abdominal: Hernia: There is no hernia in the left inguinal area or right inguinal area. Genitourinary: Penis: Normal. Testes: Normal. Epididymis: Right: Normal. Left: Normal. Comments: Bilateral vas deferens able to be brought anteriorly to the superficial surface of the scrotum. Testicles normal bilaterally without mass or lesion. No hydrocele or varicocele bilaterally. Skin: General: Skin is warm and dry. Neurological: Mental Status: He is alert and oriented to person, place, and time. Psychiatric: Mood and Affect: Mood normal. Behavior: Behavior normal. The sensitive examination was discussed with the Patient or Patient's Authorized Ball Thread Machine Tender. As applicable, any other physician, advance practice provider, medical student, or other health professional student that will be observing or involved in the sensitive examination for educational or training purposes was discussed with the Patient or Authorized Ball Thread Machine Tender. The Patient or Authorized Ball Thread Machine Tender has agreed to proceed with the sensitive examination. (Sensitive examination includes inspection and/or palpation of the breasts, pelvis, prostate and anorectal regions) Labs: No results found for: CREAT No results found for: PSA Glucose, Urine (mg/dL) Date Value 01/22/2008 NEG Bilirubin, Urine (no units) Date Value 01/22/2008 NEG Ketones, Urine (no units) Date Value 01/22/2008 NEG Specific [place], Ur (no units) Date Value 01/22/2008 1.010 Hemoglobin/Blood,Ur (no units) Date Value 01/22/2008 NEG pH, Urine (no units) Date Value 01/22/2008 8.0 Protein, Urine (mg/dL) Date Value 01/22/2008 TRACE Nitrites (no units) Date Value 01/22/2008 NEG Radiology Review: No pertinent imaging to review. Procedure: N/A ASSESSMENT/PLAN: 1. Encounter for vasectomy counseling - ICD9: V25.09, ICD10: Z30.09 (primary diagnosis) - DIAZEPAM 10 MG TABLET - CEPHALEXIN 500 MG CAPSULE 2. Request for sterilization - ICD9: V25.2, ICD10: Z30.2 - DIAZEPAM 10 MG TABLET - CEPHALEXIN 500 MG CAPSULE - Patient states unequivocal desire to never father a child in the future. - Patient desires permanent sterilization via bilateral vasectomy. - Discussed with patient in depth regarding vasectomy procedure. - Aware other options of contraception are available - The patient attests that he understood the No-Scalpel Vasectomy pamphlet. He was instructed to stop all NSAIDs, aspirin and other blood thinners 5 days prior to the vasectomy. He was instructed to shave entire front of scrotum to the base of the penis the morning of the vasectomy. Postprocedure care, expectations, and limitations were discussed. He voiced understanding of these instructions and stated his questions were answered. - I personally counseled this patient about the following and he voiced understanding: a) Vasectomy is a permanent and irreversible form of sterilization.There is a < 1% risk of needing a repeat vasectomy. There are options to retrieve sperm after vasectomy, but these are not always successful. b) 1:1,000 rate of recanalization which can results in the return of sperm into the ejaculate after vasectomy c) Patient must use alternative form of control until he is notified that his postprocedure semen analysis contained no sperm. - Need to avoid strenuous activity until recovered, ice packs emphasized. - Aware that procedure may be stopped and re-scheduled to the OR, if deemed necessary. - Risk of after vasectomy is approximately 1 in 2000 for men who have had post vasectomy azoospermia or rare non motile sperm - Patient understands previously produced sperm are capable of fertility until semean analysis confirms sterility checked 8-16 weeks following the procedure. He should use alternative contraception and consider himself fully capable of paternity until we notify him that no live sperm are present. He has also been made aware that occasional delayed cases of recanalization have been reported, so there is never the absolute impossibility of paternity. He understands that if at three month semen analysis demonstrates live sperm, he must repeat this monthly until sterility is confirmed. If this does not occur, repeat vasectomy would be required. - Postoperatively, men should refrain from ejacualtion for one week post vasectomy. This is to allow the surgical site to heal and occlusion to form - The risk of surgical complication such as symptomatic hematoma and infection or chronic scrotal pain occurs in 1-2% of men. - Aware of the rare risk of testicle injury - Patient was given instructions on when to contact the office - Patient questions answered. Clementina Zuniga APRN.CNP documented in this encounter [facility] Progress note 05-07-2024 Note Date & Type Note Facility 05-07-2024 Note HNO ID: [id number] Author: CLEMENTINA ZUNIGA APRN.TERMINAL OPERATIONS SUPERVISOR Service: ? Author Type: Nurse Practitioner Type: Progress Notes Filed: 05/07/2024 07:42 Note Text: [facility] [place] [address] UROLOGY OFFICE VISIT 05/07/2024 at 7:41 AM PATIENT NAME: Shruthi Newton DATE OF : 1990 TODAY'S DATE: 05/07/2024 Referring Provider: No referring provider defined for this encounter. Chief Complaint: Patient presents with: Consult: Vasectomy consult History of Present Illness: Mr. Newton is a 33 year old male who presents to the office regarding discussion of permanent sterilization. Patient reports fathering 4 children and explicitly states that he does not desire to father children in the future. Patient is . 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 He denies vasovagal episodes. He denies personal or family history of anesthesia complications. Denies prior urologic surgery or hernia repair history. History of undescended testis: Denies History of hydrocele or varicocele: Denies History of stone disease: Reports History of UTI/prostatitis/epididimitis/STI: Denies Sexual frequency/libido: Intact, no ED Urinary symptoms: Denies Hematuria: Denies Patient does report factor 5. Does not take any blood thinners. Review of Systems Constitutional: Negative for chills and fever. Genitourinary: See HPI Past Medical History: PAST MEDICAL HISTORY Diagnosis Date PMH - PAST MEDICAL HISTORY OF post-strept Glomerulonephritis PMH - PAST MEDICAL HISTORY OF 03/15/2003 color vision normal PMH - PAST MEDICAL HISTORY OF left wrist and ring finger fractures and also fracture of bone in right foot Routine or ritual circumcision Past Surgical History: PAST SURGICAL HISTORY Procedure Laterality Date CIRCUMCISION W/CLAMP/OTH DEV W/BLOCK Social History: Social History Tobacco Use Smoking status: Never Smokeless tobacco: Never Substance Use Topics Alcohol use: Yes Comment: rare Drug use: No Medications Prior to Admission medications : Medication naproxen (NAPROSYN) 500 mg tablet, Sig Take 1 tablet by mouth twice daily as needed. TAKE WITH FOOD, Start Date 07/05/17, End Date , Taking? , Authorizing Provider Shelbi Bateman ALLERGIES Allergen Reactions Adhesive Tape-Silic* Rash Vitals: BP 120/84 Pulse 71 SpO2 97% Physical Exam Vitals and nursing note reviewed. Constitutional: Appearance: Normal appearance. Abdominal: Hernia: There is no hernia in the left inguinal area or right inguinal area. Genitourinary: Penis: Normal. Testes: Normal. Epididymis: Right: Normal. Left: Normal. Comments: Bilateral vas deferens able to be brought anteriorly to the superficial surface of the scrotum. Testicles normal bilaterally without mass or lesion. No hydrocele or varicocele bilaterally. Skin: General: Skin is warm and dry. Neurological: Mental Status: He is alert and oriented to person, place, and time. Psychiatric: Mood and Affect: Mood normal. Behavior: Behavior normal. The sensitive examination was discussed with the Patient or Patient's Authorized Ball Thread Machine Tender. As applicable, any other physician, advance practice provider, medical student, or other health professional student that will be observing or involved in the sensitive examination for educational or training purposes was discussed with the Patient or Authorized Ball Thread Machine Tender. The Patient or Authorized Ball Thread Machine Tender has agreed to proceed with the sensitive examination. (Sensitive examination includes inspection and/or palpation of the breasts, pelvis, prostate and anorectal regions) Labs: No results found for: CREAT No results found for: PSA Glucose, Urine (mg/dL) Date Value 01/22/2008 NEG Bilirubin, Urine (no units) Date Value 01/22/2008 NEG Ketones, Urine (no units) Date Value 01/22/2008 NEG Specific [place], Ur (no units) Date Value 01/22/2008 1.010 Hemoglobin/Blood,Ur (no units) Date Value 01/22/2008 NEG pH, Urine (no units) Date Value 01/22/2008 8.0 Protein, Urine (mg/dL) Date Value 01/22/2008 TRACE Nitrites (no units) Date Value 01/22/2008 NEG Radiology Review: No pertinent imaging to review. Procedure: N/A ASSESSMENT/PLAN: 1. Encounter for vasectomy counseling - ICD9: V25.09, ICD10: Z30.09 (primary diagnosis) - DIAZEPAM 10 MG TABLET - CEPHALEXIN 500 MG CAPSULE 2. Request for sterilization - ICD9: V25.2, ICD10: Z30.2 - DIAZEPAM 10 MG TABLET - CEPHALEXIN 500 MG CAPSULE - Patient states unequivocal desire to never father a child in the future. - Patient desires permanent sterilization via bilateral vasectomy. - Discussed with patient in depth regarding vasectomy procedure. - Aware other options of contraception are available - The patient attests that he understood the No-Scalpel Vasectomy pamphlet. (more content not included)... [facility] Evaluation note Note Date & Type Note Facility Evaluation note No assessment information availa ble [facility] Work Phone: Evaluation note Note Date & Type Note Facility Evaluation note Diagnosis Encounter for vasectomy counseling- Primary Other general counseling and advice for contraceptive management Request for sterilization documented in this encounter [facility] Reason for referral (narrative) Note Date & Type Note Facility Reason for referral (narrative) No reason for referral information available [facility] Work Phone: Summary Purpose Family History No Family History Records FoundNo Family History Records FoundNo Family History Records FoundNo Family History Records Found Advance Directives No Advanced Directives Records Found Advance Directive Response Recorded Date/ Time Living Will No August 01 12:32pm Power of Cloud Administrator No August 01, 2017 12:32pm Advance Directive Response Recorded Date/ Time Living Will No November 24, 2021 8 :45am Power of Cloud Administrator No November 24, 2021 8:45am Chief Complaint and Reason for Visit Chief Complaint FLANK Additional Source Comments (unrecognized sect ion and content) No Status Records FoundNo Status Records FoundNo Status Records FoundNo Status Records Found INFORMATION SOURCE (unrecogn ized section and content) DATE CREATED AUTHOR 12/27/2017 [facility] DATE CREATED AUTHOR AUTHOR'S ORGANIZ ATION 05/07/2024 [facility] DATE CREATED AUTHOR AUTHOR'S ORGANIZ ATION 02/14/2025 [facility] DATE CREATED AUTHOR AUTHOR'S ORGANIZ ATION 03/08/2025 [facility] Goals (unrecognized section and content) Goals may be documented in a n alternate sectionGoals may be documented in an alternate sectionGoals may be documented in an alternate section Source Comments (unrecognize d section and content) In the event this informatio n is protected by the Federal Confidentiality of Alcohol and Drug Abuse Patient Records regulations: The Federal rules restrict any use of the information to criminally investigate or prosecute any alcohol or drug abuse patient.[facility] Reason for Visit (unrecogniz ed section and content) Reason Comments Consult Vasectomy consult Care Teams (unrecognized sec tion and content) Film Editor Supervisor Relationship Specialty Start Date End Date Husam Jacobo MD [address] [place] [address] PCP - General Family Medicine 05/07/24 Team Status: Active Member Role/Relationship Status Dates Dr. Husam Jacobo MD Family Provider Active Dr. Husam Jacobo MD Primary Care Provider Acti ve Team Status: Inactive Member Role/Relationship Status Dates Dr. Husam Jacobo MD Primary Care Provider Acti ve Start: February 07, 2025 End: February 07, 2025 Dr. Husam Jacobo MD Attending Provider Active Start: February 07, 2025 End: February 07, 2025 FOR RECORDS PERTAINING TO PATIENTS WHO ARE OR HAVE BEEN ENROLLED IN A CHEMICAL DEPENDENCY/SUBSTANCEABUSE PROGRAM, SOME INFORMATION MAY BE OMITTED. This clinical summary was aggregated from multiple sources. Caution should be exercised in using it in the provision of clinical care. This summary normalizes information from multiple sources, and as a consequence, information in this document may materially change the coding, format and clinical context of patient data. In addition, data may be omitted in some cases. CLINICAL DECISIONS SHOULD BE BASED ON THE PRIMARY CLINICAL RECORDS. [facility] [employer] [facility]. provides no warranty or guarantee of the accuracy or completeness of information in this document.
[2025-06-25 10:03] LABS: Hematocrit 49.3 % (40-54); Hemoglobin 16.2 g/dL (13.0-16.5); Immature Granulocytes Count 0.010 X10^3/uL (0.0-0.0); Mean Corp Hgb Conc 32.9 g/dL (32-36); Mean Corpuscular Volume 84.7 fL (80-94); Mean Platelet Vol. 10.4 fl (6.2-12.0); NRBC Flagged by Analyzer 0 % (0-5); Platelet Count 282 K/mm3 (150-450); RBC Distribution Width CV 12.8 % (11.6-14.6); RBC Distribution Width SD 39.3 fl (35.1-43.9); Red Blood Count 5.82 M/mm3 (4.6-6.2); White Blood Count 8.2 K/mm3 (4.4-11.0)
[2025-06-25 10:16] LABS: CRP < 3.00 mg/L (0.0-3.0)
[2025-06-25 10:18] LABS: PTHIN 27 pg/mL (11-61)
[2025-06-26 13:08] LABS: ANTINUCLEAR ANTIBODIES DIRECT Negative (Negative)
== END | disposition home or self-care (01) ==
PROVIDERS: PCP Family Medicine; Referring Provider Family Medicine; Visit Provider Family Medicine
DX: M25.569 Pain in unspecified knee (principal)
CPT/HCPCS: 36415; 83970; 85025; 85652; 86038; 86140; 86431